=== PATIENT | male | born 1940 | race Caucasian/White ===

== ENCOUNTER 2020-10-03 01:35 | Inpatient (IN) | payer OTHER, SELFPAY ==
[2020-10-03] VITALS (7 sets, daily range): BP systolic 136–200; BP diastolic 70–82
[~2020-10-03] VITALS: Ht 175.3 cm; Wt 90.7 kg
[~2020-10-03 01:35] MED LIST: ACET-503 PO; BEN50 PO; CARV6.25 PO; GABA100C PO; LANTUS SC; ROC.25 PO
--- NOTE | 2020-10-03 01:36 | NUR ---
PT BIBA AND TRANSFERRED TO BED VIA DRAW SHEET. ERMD AND RT AT BEDSIDE.
--- NOTE | 2020-10-03 01:40 | NUR ---
80 YR OLD BIBA FROM HOME FOR CC OF DIFFICULTY BREATHING. PT IS AOX4. PER EMS, PT WAS 52% on ROOM AIR, WAS PLACED ON CPAP AT SATURATION AT 97%. PT HAS SIGNS OF WORK OF BREATHING. PT LUNG SOUND HAS WHEEZES UPON EXPIRATION. PT HAS SHUNT IN LEFT UPPER ARM. PT HAS DARK SKIN WITH SLIGHT EDEMA IN BILATERAL LOWER LEGS. PT RIGHT FOOT HAS WRAPPING PRIOR TO ARRIVAL. PT IS BAHRAINI SPEAKING. BED LOCKED IN LOWEST POSITION WITH 2 SIDE RAILS UP FOR SAFTEY. 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
[2020-10-03] MEDS ORDERED: NITROGLYCERIN 0.4 MG TAB SL ONE (01:45)
--- NOTE | 2020-10-03 01:50 | NUR ---
PT PLACED ON BIPAP 30/01 f 14 TOLERATED WELL AND WAS TITRATED TO 29/12 f14 28% FIO2. PT TOLERATING WELL RESP DISTRESS IS NO LONGER PRESENT. WILL CONTINUE TO TITRATE TOLERATED AND MONITOR PT. Addendum: 10/03/20 at 0351 by GEETA POST CHARTING
--- NOTE | 2020-10-03 01:52 | NUR ---
NOVEL AND INFLUENZA SWAB COLLECTED AND HANDED TO LAB.
--- NOTE | 2020-10-03 01:54 | NUR ---
THIRD SHIFT LIEUTENANT AT BEDSIDE. BLOOD SAMPLES AND CULTURES OBTAINED AND HANDED TO THIRD SHIFT LIEUTENANT.
--- NOTE | 2020-10-03 01:58 | NUR ---
granddaughter Abigail Page called to get update on pt - contact # [phone]. Per granddaughter he is suppose to have dialysis today
[2020-10-03 02:09] LABS: BASOPHILS # (AUTO) 0.1 K/uL (0.00-0.22); EOSINOPHILS # (AUTO) 0.1 K/uL (0-0.4); EOSINOPHILS % (AUTO) 1.6 % (0.0-4.0); HEMATOCRIT 33.1 % (36-52); HEMOGLOBIN 10.8 g/dL (12.0-18.0); LYMPHOCYTES # (AUTO) 0.8 K/uL (2.0-11.5); LYMPHOCYTES % (AUTO) 12.4 % (20.5-51.1); MEAN CORPUSCULAR HEMOGLOBIN 31 pg (27-31); MEAN CORPUSCULAR HGB CONC 33 g/dL (33-37); MEAN CORPUSCULAR VOLUME 93.8 fL (80-94); MONOCYTES # (AUTO) 0.3 K/uL (0.8-1.0); MONOCYTES % (AUTO) 5.2 % (1.7-9.3); NEUTROPHILS # (AUTO) 5.4 K/uL (1.8-7.7); NEUTROPHILS % (AUTO) 79.8 % (42.2-75.2); PLATELET COUNT (AUTO) 267 K/uL (140-450); RED BLOOD CELL COUNT(AUTO) 3.53 MIL/uL (4.20-6.10); RED CELL DISTRIBUTION WIDTH 16.2 % (11.6-13.7); WHITE BLOOD COUNT (AUTO) 6.7 K/uL (4.8-10.8)
--- NOTE | 2020-10-03 02:10 | NUR ---
# 15 FR Urinary catheter inserted utilizing sterile technique. Immediate return of 300 ml OF YELLOW urine noted. Urine sample collected and sent to lab. Pt tolerated procedure WELL.
[2020-10-03 02:24] LABS: C-REACTIVE PROTEIN QUANT 5.5 mg/dL (0.0-0.9)
[2020-10-03 02:26] LABS: PROTHROMBIN TIME 11.6 secs (10.8-13.4)
[2020-10-03 02:27] LABS: APPEARANCE,URINE CLEAR (CLEAR); BILIRUBIN,URINE NEGATIVE (NEGATIVE); BLOOD, URINE 3+ (NEGATIVE); COLOR,URINE YELLOW (YELLOW); LEUKOCYTE ESTERASE ,URINE NEGATIVE (NEGATIVE); NITRITE, URINE NEGATIVE (NEGATIVE); PH,URINE 8.5 (5.0-9.0); UGLUCOSE 1+ (NEGATIVE)
[2020-10-03 02:29] LABS: LACTATE DEHYDROGENASE 171 U/L (85-227)
--- NOTE | 2020-10-03 02:30 | NUR ---
RADIOLOGIST TECH AT BEDSIDE.
[2020-10-03 02:34] LABS: RBC,URINE TOO NUMEROUS TO COUN /HPF (0-5)
[2020-10-03 02:35] LABS: WBC,URINE 0-5 /HPF (0-5)
--- NOTE | 2020-10-03 02:36 | NUR ---
ADMINISTERED SECOND DOSE OF NITROGLYCERIN SUBLINGUAL.
--- NOTE | 2020-10-03 02:41 | NUR ---
ADMINISTERED THIRD DOSE OF NITROGLYCERIN SUBLINGUAL.
--- NOTE | 2020-10-03 02:41 | NUR ---
PT WAS FOUND AWAKE IN DEAN'S POSITION IN BED. PT STATES NO PAIN AND NO MEDICAL COMPLAINTS. PT HAS EQUAL RISE AND FALL UPON RESPIRATION. BED LOCKED IN LOWEST POSITION WITH 2 SIDE RAILS UP FOR SAFETY. WILL CONTINUE TO MONITOR.
--- NOTE | 2020-10-03 02:42 | NUR ---
RT AT BEDSIDE.
[2020-10-03 02:51] LABS: ALBUMIN 3.6 g/dL (3.4-5.0); ANION GAP 13.4 (8-16); ASPARTATE AMINOTRANSFERASE 15 U/L (15-37); CHLORIDE 102 mmol/L (98-107); GLUCOSE 166 mg/dL (74-106); POTASSIUM 5.4 mmol/L (3.5-5.1); SODIUM SERUM 143 mmol/L (136-145); TOTAL BILIRUBIN 0.6 mg/dL (0.0-1.0); UREA NITROGEN, BLOOD 46 mg/dL (7-18)
[2020-10-03] MEDS ORDERED: DEXAMETHASONE 10 MG/ML VIAL IVP ONE (03:10)
[2020-10-03] MEDS ORDERED: cefTRIAXone 1,000 MG VIAL ONE (03:16)
--- NOTE | 2020-10-03 03:21 | NUR ---
IV IN RIGHT HAND FOUND REMOVED. CATH INTACT. 4X4 GAUZE APPLIED TO RIGHT HAND.
--- NOTE | 2020-10-03 03:54 | NUR ---
SPOKED TO PT GRAND DAUGHTER "DAVINA PALMA" AND UPDATE ON PT STATUS. PER "DAVINA PALMA", PT HAS BLOOD CLOTS IN LOWER LEGS BILATERALLY FOR PAST 1 MONTH AND WAS NOT REMOVED AND PT HAS GANGRENE IN RIGHT FOOT PAST 5 YEARS. ERMD NOTIFIED AND AWARE. PER "DAVINA PALMA", [facility]" CAN BE CONTACTED AT [phone] FOR MORE DETAILED PT MEDICAL HISTORY.
[2020-10-03] MEDS ORDERED: VITA1TAB44 PO (04:16)
[2020-10-03] MEDS ORDERED: ATOR40TA PO (04:16)
[2020-10-03] MEDS ORDERED: CARV3.12 PO (04:16)
[2020-10-03] MEDS ORDERED: APIX2.5 PO (04:16)
[2020-10-03] MEDS ORDERED: SYN.075 PO (04:16)
[2020-10-03] MEDS ORDERED: LACT1CAP50 PO (04:16)
[2020-10-03] MEDS ORDERED: ASPI-1822 PO (04:16)
--- NOTE | 2020-10-03 04:18 | NUR ---
SATNIAGO SWAB COLLECTED AND WALKED TO LAB.
--- NOTE | 2020-10-03 04:20 | NUR ---
DRESSING TO RIGHT FOOT AND LEFT TOE REMOVED. WOUND ASSESSMENT AND PICTURES TAKEN OF RIGHT HEEL, RIGHT TOE, AND LEFT TOE. NEW GAUZE APPLIED TO RIGHT HEEL, RIGHT TOE, AND LEFT TOE. PT RIGHT FOOT WRAPPED WITH NEW ROLLER GAUZE.
--- NOTE | 2020-10-03 04:40 | NUR ---
PT WAS FOUND ASLEEP IN DEAN'S POSITION IN BED. PT HAS EQUAL RISE AND FALL UPON RESPIRATION. PT DOES NOT APPEAR TO BE UNDER DISTRESS. BED LOCKED IN LOWEST POSITION WITH 2 SIDE RAILS UP FOR SAFETY. WILL CONTINUE TO MONITOR.
--- NOTE | 2020-10-03 06:17 | NUR ---
Patient will be admitted to care of DR PIHLLIPS. Admited to TELEMETRY. Will go to room 124B. Belongings list completed. Report to LEORA ALFONSO.
--- NOTE | 2020-10-03 06:51 | NUR ---
PT TRANSFERRED TO TELEMETRY ROOM 124B. RECEIVING NURSE LEORA ALFONSO AT BEDSIDE.
--- NOTE | 2020-10-03 06:53 | NUR ---
TRANSFERRED PT TO MST UNIT FROM ER WITH ER NURSE (SASHA) AND RT. PT IS AWAKE AND ALERT, A&OX4. ON 2L O2 OXIMIZER WITH BREATHING UNLABORED. O2 SAT IS 100%. SKIN IS WARM AND DRY. MULTIPLE WOUNDS ON BILATERAL LOWER EXTREMITIES. PICTURES TAKEN BY THE ER NURSE. IV IS IN THE RIGHT AC 20 GAUGE SALINE LOCKED. BECKA COVID NEGATIVE, PCR PENDING. PLAN OF CARE DISCUSSED. PT IS STABLE AT THIS TIME.
--- NOTE | 2020-10-03 07:10 | NUR ---
REC'D PT FROM E.D. PT STABLE. A/Ox4, NO CHEST PAIN AT THIS TIME, LUNGS CLEAR ELHAM.LOBES/DIMINISHED, S1S2, [place]AM.LOWER EXTREMITY DISCOLORATION, DARK PIGMENTED. HAS DRESSING ON R. FOOT H/O GANGRENE, L.TOE WOUND. L. UPPER ARM HD ACCESS. R. AC 20G. PT STATES HAS DIFFICULTY TAKING IN DEEP BREATH, OXYGEN SATURATION 100%.
--- NOTE | 2020-10-03 07:20 | NUR ---
ENDORSED PT TO DAY SHIFT NURSE FOR CONTINUITY OF CARE. PT IS STABLE AT THIS TIME. PLAN OF CARE DISCUSSED.
--- NOTE | 2020-10-03 07:50 | NUR ---
CONTACTED YANY CORONA FOR CT ANGIO CONSENT, CONSENTED TO PROCEDURE.
[2020-10-03] MEDS ORDERED: ONDANSETRON 4 MG/2 ML VIAL IVP PRN (08:00)
[2020-10-03] MEDS ORDERED: ACETAMINOPHEN 325 MG TAB PO PRN (08:00)
[2020-10-03] MEDS ORDERED: ZOLPIDEM 5 MG TAB PO PRN (08:00)
[2020-10-03] MEDS ORDERED: DOCUSATE SODIUM 100 MG GELCAP PO PRN (08:00)
[2020-10-03 08:30] LABS: BASOPHILS % (AUTO) 0.4 % (0.0-2.0); EOSINOPHILS % (AUTO) 0.1 % (0.0-4.0); HEMATOCRIT 33.4 % (36-52); HEMOGLOBIN 10.9 g/dL (12.0-18.0); LYMPHOCYTES # (AUTO) 0.5 K/uL (2.0-11.5); LYMPHOCYTES % (AUTO) 7.4 % (20.5-51.1); MEAN CORPUSCULAR HEMOGLOBIN 31 pg (27-31); MEAN CORPUSCULAR HGB CONC 33 g/dL (33-37); MONOCYTES # (AUTO) 0.2 K/uL (0.8-1.0); MONOCYTES % (AUTO) 2.3 % (1.7-9.3); NEUTROPHILS # (AUTO) 5.9 K/uL (1.8-7.7); NEUTROPHILS % (AUTO) 89.8 % (42.2-75.2); PLATELET COUNT (AUTO) 255 K/uL (140-450); RED BLOOD CELL COUNT(AUTO) 3.56 MIL/uL (4.20-6.10); RED CELL DISTRIBUTION WIDTH 16.7 % (11.6-13.7); WHITE BLOOD COUNT (AUTO) 6.6 K/uL (4.8-10.8)
[2020-10-03 08:52] LABS: PROTHROMBIN TIME 11.7 secs (10.8-13.4)
[2020-10-03 08:54] LABS: ALBUMIN 3.4 g/dL (3.4-5.0); AMYLASE 57 U/L (25-115); ANION GAP 12.9 (8-16); ASPARTATE AMINOTRANSFERASE 12 U/L (15-37); CARBON DIOXIDE 31.1 mmol/L (21-32); CHLORIDE 102 mmol/L (98-107); CHOL/HDL RATIO 2.8 (1-4.5); GLUCOSE 199 mg/dL (74-106); HDL CHOLESTEROL 49 mg/dL (40-60); LDL (CALC) 77 mg/dL (60-100); LIPASE 127 U/L (73-393); MAGNESIUM 2.7 mg/dL (1.8-2.4); PHOSPHORUS 3.5 mg/dL (2.5-4.9); SODIUM SERUM 140 mmol/L (136-145); THYROID STIMULATING HORMONE 2.67 uIU/mL (0.34-3.74); TOTAL BILIRUBIN 0.6 mg/dL (0.0-1.0); TRIGLYCERIDES 63 mg/dL (30-150); UREA NITROGEN, BLOOD 49 mg/dL (7-18)
[2020-10-03 08:58] LABS: CREATININE 5.1 mg/dL (0.6-1.3)
--- NOTE | 2020-10-03 09:02 | NUR ---
PT [facility] PT WAS TRANSFERRED WITH A NASAL CANULA AT 6L/MIN SATURATING 100% DURING TRANSPORT TIME. PTS VITAL SIGNS WERE STABLE DURING TRANSPORT. PT THEN WAS PLACED ON 5L/MIN NC MAINTAINING 98% SATURATIONS. CARE WAS THEN TRANSFERRED TO THE MST TEAM.
[2020-10-03] MEDS: hydrALAZINE 20 MG/ML VIAL IVP SCH ×2 (09:53→13:04)
--- NOTE | 2020-10-03 09:56 | NUR ---
ADMINISTERED 5MG HYDRALAZINE PER MD ORDER FOR INCREASED B/P . FLUSHED BEFORE ADMINISTRATION AND AFTER WITH 10ML NS. PT TOLERATED PROCEDURE WELL.
[2020-10-03] MEDS: NACL 0.9% 1,000 ML IV SCH ×2 (10:00→18:00)
--- NOTE | 2020-10-03 10:06 | NUR ---
SOCIAL WORK NOTE: KAN WAS UNABLE TO MEET PATIENT AT BEDSIDE. KAN CONTACTED PATIENT'S , YANY CORONA [phone]. KAN LEFT VM WITH PATIENT'S . SW WILL FOLLOW UP TO COMPLETE ASSESSMENT. Addendum: 10/04/20 at 1426 by Teofilo PALMER KAN LEFT ADDITIONAL VM. Addendum: 10/05/20 at 1029 by Teofilo PALMER KAN LEFT ADDITIONAL VM WITH YANY LOUIS [phone]. KAN CONTACTED KADEN COLINDRES TO SEE IF ANY ADDITIONAL FAMILY HAS CALLED. PER RN, NO FAMILY HAS CALLED. KAN WILL FOLLOW UP.
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
[2020-10-03] MEDS ORDERED: SODIUM ZIRCONIUM CYCLOSILICATE 10 GM POWD.PACK PO SCH (15:00)
--- NOTE | 2020-10-03 15:38 | NUR ---
PATIENT HAS BEEN SCREENED AND CATEGORIZED MODERATE NUTRITION RISK. PATIENT WILL BE SEEN WITHIN 3-5 DAYS OF ADMISSION. 10/05/20 10/07/[address]
--- NOTE | 2020-10-03 16:04 | NUR ---
PT HAD BEGUN HEMODIALYSIS WHEN CT AVAILABLE FOR CT ANGIOGRAM, DR. PHILLIPS NOTIFIED, PER DR. PHILLIPS CHECK WITH NEPHROLOGY TO STOP HD AND PERFORM CT, PER DR. DISLA, HAVE PT DIALYSE FOR TWO HOURS, THEN HAVE CT ANGIOGRAM DONE, SHE WILL ORDER NEW HD FOR TOMORROW 10/04/2020. MESSAGE SENT TO DR. PHILLIPS TO INFORM.
[2020-10-03] MEDS: carvediloL 3.125 MG TAB PO SCH (17:00)
[2020-10-03] MEDS ORDERED: DEXTROSE 50% 50 ML SYR IVP PRN (17:05)
[2020-10-03] MEDS: INSULIN LISPRO SLIDING SCALE 100 UNITS/ML VIAL SUBQ PRN ×2 (17:18→21:08)
--- NOTE | 2020-10-03 17:30 | NUR ---
SPOKE TO CT SCAN, INFORMED PT WAS READY FOR ANGIOGRAM. PER LANGUAGES AND LITERATURE INSTRUCTOR, WILL COME ONCE URGENT SCANS HAVE BEEN PROCESSED FIRST.
--- NOTE | 2020-10-03 19:37 | NUR ---
ENDORSED TO NEUROCRITICAL CARE PHYSICIAN NURSE FOR CONTINUITY OF CARE, PT STABLE.
--- NOTE | 2020-10-03 19:38 | NUR ---
RECEIVED PATIENT FROM AM SHIFT NURSE FOR CONTINUITY OF CARE. AAOX4. RESPIRATIONS EVEN, UNLABORED. CONTINUES ON 3L VIA OXIMIZER, O2SAT 100%. NO S/S RESPIRATORY DISTRESS. SKIN WARM, DRY. SALINE LOCK TO RIGHT AC 20 PATENT/INTACT. LEFT ARM AV SHUNT NOTED. NO C/O PAIN. NO S/S ACUTE DISTRESS. ABDOMEN SOFT, NONTENDER. BOWEL SOUNDS ACTIVE X4 QUADRANTS. PATIENT IS ANURIC. PLAN OF CARE DISCUSSED. CALL LIGHT WITHIN REACH. SAFETY PRECAUTIONS IN PLACE. ISOLATION PRECAUTIONS OBSERVED.
--- NOTE | 2020-10-03 19:58 | NUR ---
PT UNAVAILABLE AT THIS TIME/PT NOT IN ROOM
[2020-10-03] MEDS: APIXABAN 2.5 MG TAB PO SCH (21:07)
[2020-10-03] MEDS: BLOOD GLUCOSE MONITORING 1 DEV DEV FS SCH (21:07)
[2020-10-03] MEDS: PIPERACILLIN/TAZOBACTAM 2.25 GM in DEXTROSE 5% 50 ML IV SCH (21:07)
[2020-10-03] MEDS: VIT-B COMP/VIT-C/FOLIC ACID 1 TAB PO SCH (21:07)
--- NOTE | 2020-10-03 21:30 | NUR ---
DUE MEDS GIVEN. PATIENT IS RESTING COMFORTABLY IN BED AT THIS TIME. NO S/S ACUTE DISTRESS. CALL LIGHT WITHIN REACH. SAFETY PRECAUTIONS IN PLACE.
--- NOTE | 2020-10-03 23:40 | NUR ---
PATIENT IS ASLEEP. NO S/S ACUTE DISTRESS. CALL LIGHT WITHIN REACH. SAFETY PRECAUTIONS IN PLACE.
[2020-10-04] VITALS: BP 142/71
--- NOTE | 2020-10-04 01:00 | NUR ---
MADE ROUNDS. PATIENT IS ASLEEP. NO S/S ACUTE DISTRESS. CALL LIGHT WITHIN REACH. SAFETY PRECAUTIONS IN PLACE.
--- NOTE | 2020-10-04 03:00 | NUR ---
PATIENT IS ASLEEP. NO S/S ACUTE DISTRESS. CALL LIGHT WITHIN REACH. SAFETY PRECAUTIONS IN PLACE.
[2020-10-04] MEDS: NACL 0.9% 1,000 ML IV SCH ×2 (03:27→14:14)
[2020-10-04 04:00] VITALS: BP 145/72
[2020-10-04] MEDS: PIPERACILLIN/TAZOBACTAM 2.25 GM in DEXTROSE 5% 50 ML IV SCH ×3 (05:07→21:49)
--- NOTE | 2020-10-04 05:11 | NUR ---
PATIENT IS RESTING COMFORTABLY IN BED. NO S/S ACUTE DISTRESS. CALL LIGHT WITHIN REACH. SAFETY PRECAUTIONS IN PLACE.
[2020-10-04] MEDS: LEVOTHYROXINE 0.075 MG TAB PO SCH (05:37)
[2020-10-04 06:03] LABS: BASOPHILS % (AUTO) 0.4 % (0.0-2.0); EOSINOPHILS % (AUTO) 0.3 % (0.0-4.0); HEMATOCRIT 29.1 % (36-52); HEMOGLOBIN 9.5 g/dL (12.0-18.0); LYMPHOCYTES # (AUTO) 0.7 K/uL (2.0-11.5); LYMPHOCYTES % (AUTO) 10.8 % (20.5-51.1); MEAN CORPUSCULAR HEMOGLOBIN 31 pg (27-31); MEAN CORPUSCULAR HGB CONC 33 g/dL (33-37); MEAN CORPUSCULAR VOLUME 93.9 fL (80-94); MONOCYTES # (AUTO) 0.6 K/uL (0.8-1.0); MONOCYTES % (AUTO) 8.9 % (1.7-9.3); NEUTROPHILS % (AUTO) 79.6 % (42.2-75.2); PLATELET COUNT (AUTO) 258 K/uL (140-450); RED CELL DISTRIBUTION WIDTH 16.9 % (11.6-13.7); WHITE BLOOD COUNT (AUTO) 6.3 K/uL (4.8-10.8)
[2020-10-04 06:27] LABS: MAGNESIUM 2.3 mg/dL (1.8-2.4); PHOSPHORUS 3.9 mg/dL (2.5-4.9)
[2020-10-04 06:28] LABS: ANION GAP 10.7 (8-16); CARBON DIOXIDE 31.8 mmol/L (21-32); CHLORIDE 103 mmol/L (98-107); GLUCOSE 79 mg/dL (74-106); POTASSIUM 4.5 mmol/L (3.5-5.1); SODIUM SERUM 141 mmol/L (136-145); UREA NITROGEN, BLOOD 41 mg/dL (7-18)
[2020-10-04 06:51] LABS: CREATININE 4.3 mg/dL (0.6-1.3)
[2020-10-04] MEDS: BLOOD GLUCOSE MONITORING 1 DEV DEV FS SCH ×4 (07:01→21:49)
--- NOTE | 2020-10-04 07:33 | NUR ---
ENDORSED PATIENT TO AM SHIFT NURSE FOR CONTINUITY OF CARE.
--- NOTE | 2020-10-04 07:35 | NUR ---
RECEIVED BEDSIDE ENDORSEMENT FROM NIGHTSDEFT NURSE FOR CONTINUITY OF CARE.
[2020-10-04 08:00] VITALS: BP 169/63
[2020-10-04] MEDS: carvediloL 3.125 MG TAB PO SCH ×2 (08:00→17:42)
--- NOTE | 2020-10-04 08:43 | NUR ---
AM MEDS HELD FOR DIALYSIS
[2020-10-04] MEDS: ASPIRIN 81 MG TAB.CHEW PO SCH (08:45)
[2020-10-04] MEDS: APIXABAN 2.5 MG TAB PO SCH ×2 (08:45→21:53)
[2020-10-04] MEDS: ATORVASTATIN 20 MG TAB PO SCH (08:45)
[2020-10-04] MEDS: VIT-B COMP/VIT-C/FOLIC ACID 1 TAB PO SCH ×2 (08:46→21:49)
[2020-10-04] MEDS: INSULIN LISPRO SLIDING SCALE 100 UNITS/ML VIAL SUBQ PRN (11:52)
--- NOTE | 2020-10-04 11:58 | NUR ---
ADMINISTERED PRN INSULIN FOR BG 152. PATIENT CURRENTLY UNDERGOING DIALYSIS. DIALYSIS NURSE AT BEDSIDE. PATIENT WATCHING TV, ALERT AND ORIENTED. NO SIGNS OF DISTRESS. SAFETY MEASURES IN PLACE. WILL CONTINUE TO MONITOR.
[2020-10-04 12:00] VITALS: BP 109/50
--- NOTE | 2020-10-04 14:10 | NUR ---
ADMINISTERED PRESCRIBED MED PER MD ORDER. PATIENT TOLERATED WELL. MEDICATION EDUCATION PROVIDED. PATIENT VERBALIZED UNDERSTANDING. SAFETY MEASURES IN PLACE. WILL CONT TO MONITOR.
[2020-10-04 16:00] VITALS: BP 111/54
--- NOTE | 2020-10-04 17:28 | NUR ---
PATIENT BG 127, NO INSULIN COVERAGE NEEDED.
--- NOTE | 2020-10-04 19:00 | NUR ---
PATIENT RECEIVED IN BED, ALERT AND ORIENTED X 4. DISCUSSED WITH PATIENT RN PLAN OF CARE, MEDICATION REGIMEN, FALL AND SAFETY PRECAUTIONS AND MEDICAL PLAN OF CARE. IV TO RIGHT AC INTACT AND IN PLACE. NO SIGNS OF INFILTRATION NOTED. LEFT UPPER ARM DIALYSIS SHUNT INTACT. 2L OXYMIZER IN PLACE. NO COMPLAINT OF SOB NOTED. RESPIRATIONS EVEN AND NONLABORED. BILATERAL LOWER EXTREMITIES DISCOLORATION NOTED WITH SCABS. GANGRENE NOTED TO RIGHT FOOT. NO COMPLAINT OF PAIN OFFERED. FALL AND SAFETY PRECAUTIONARY MEASURES ONGOING. NO ACUTE DISTRESS NOTED.
--- NOTE | 2020-10-04 19:34 | NUR ---
ENDORSED PATIENT TO NIGHTSHIFT NURSE FOR CONTINUITY OF CARE.
[2020-10-04 20:00] VITALS: BP 109/50
[2020-10-05] VITALS: BP 104/58
[2020-10-05] MEDS: NACL 0.9% 1,000 ML IV SCH ×3 (00:05→22:50)
[2020-10-05 04:00] VITALS: BP 110/62
[2020-10-05] MEDS: PIPERACILLIN/TAZOBACTAM 2.25 GM in DEXTROSE 5% 50 ML IV SCH ×3 (05:00→22:46)
[2020-10-05 06:23] LABS: ANION GAP 12.2 (8-16); CARBON DIOXIDE 26.9 mmol/L (21-32); CHLORIDE 104 mmol/L (98-107); CREATININE 3.7 mg/dL (0.6-1.3); GLUCOSE 146 mg/dL (74-106); POTASSIUM 4.1 mmol/L (3.5-5.1); SODIUM SERUM 139 mmol/L (136-145); UREA NITROGEN, BLOOD 29 mg/dL (7-18)
[2020-10-05 06:50] LABS: BASOPHILS % (AUTO) 0.3 % (0.0-2.0); EOSINOPHILS # (AUTO) 0.1 K/uL (0-0.4); HEMATOCRIT 29.8 % (36-52); HEMOGLOBIN 9.7 g/dL (12.0-18.0); LYMPHOCYTES # (AUTO) 0.8 K/uL (2.0-11.5); LYMPHOCYTES % (AUTO) 18.8 % (20.5-51.1); MEAN CORPUSCULAR HEMOGLOBIN 31 pg (27-31); MEAN CORPUSCULAR HGB CONC 33 g/dL (33-37); MEAN CORPUSCULAR VOLUME 94.1 fL (80-94); MONOCYTES # (AUTO) 0.5 K/uL (0.8-1.0); MONOCYTES % (AUTO) 11.3 % (1.7-9.3); NEUTROPHILS # (AUTO) 2.9 K/uL (1.8-7.7); NEUTROPHILS % (AUTO) 67.6 % (42.2-75.2); PLATELET COUNT (AUTO) 254 K/uL (140-450); RED BLOOD CELL COUNT(AUTO) 3.17 MIL/uL (4.20-6.10); RED CELL DISTRIBUTION WIDTH 16.5 % (11.6-13.7); WHITE BLOOD COUNT (AUTO) 4.3 K/uL (4.8-10.8)
[2020-10-05] MEDS: BLOOD GLUCOSE MONITORING 1 DEV DEV FS SCH ×4 (07:30→21:00)
[2020-10-05 08:00] VITALS: BP 137/41
--- NOTE | 2020-10-05 08:05 | NUR ---
PATIENT IS AOX2-3, A FIB RATE CONTROLLED, RESPIRATIONS EVEN AND UNLABORED ON 2L OXYMIZER. HD YESTERDAY VIA [facility] AV SHUNT CLEAN DRY INTACT. BILATERAL DISCOLORATION NOTED TO LOWER EXTREMITIES. RIGHT FOOT WOUND IS CLEAN DRY INTACT, WOUND CARE DONE BY WOUND RN. PATIENT DENIES PAIN. UPDATED PATIENT ON PLAN OF CARE. WILL CONTINUE TO MONITOR.
[2020-10-05] MEDS: ATORVASTATIN 20 MG TAB PO SCH (08:31)
[2020-10-05] MEDS: VIT-B COMP/VIT-C/FOLIC ACID 1 TAB PO SCH ×2 (08:31→22:47)
[2020-10-05] MEDS: ASPIRIN 81 MG TAB.CHEW PO SCH (08:32)
[2020-10-05] MEDS: carvediloL 3.125 MG TAB PO SCH ×2 (08:32→17:58)
[2020-10-05] MEDS: LEVOTHYROXINE 0.075 MG TAB PO SCH (08:32)
[2020-10-05] MEDS: APIXABAN 2.5 MG TAB PO SCH ×2 (08:34→22:47)
[2020-10-05] MEDS ORDERED: NICOTINE TRANSD SYS 14 MG/24 HR PATCH TD SCH (09:00)
--- NOTE | 2020-10-05 09:59 | NUR ---
WOUND CONSULT DONE, PT. ALSO SEEN BY DR. EDMONDS BALANCE WHEEL SCREW HOLE TAPPER, POC DISCUSSED WITH DR. PHILLIPS, PENDING BONE SCANNED R/O OSTEOMYELITIS. BROWN DRY SCABS TO RIGHT ACHILLES 3X5CM, RIGHT HALLUX 2X1CM AND LEFT HALLUX 1X1CM, NO OPEN ACTIVE WOUND -APPLY SOAKED BETADINE 4X4 TO RIGHT ACHILLES, RIGHT AND LEFT HALLUX SCABS COVER WITH DRY DRESSING QD AND PRN. -APPLY HYDROGUARD TO BLE XEROSIS SKIN BID AND CARLITO -TURN AND REPOSITION PATIENT Q 2H -ASSESS AND MONITOR SKIN CONDITION DURING POSITION CHANGE -OFFLOAD BILATERAL HEELS BY PLACING PILLOWS UNDER CALVES AT ALL TIMES, UNLESS OTHERWISE CONTRAINDICATED -PRESSURE REDISTRIBUTION BY PLACING PILLOWS AND OFFLOADING SACRALCOCCYX -KEEP SKIN CLEAN AND DRY AT ALL TIMES.
[2020-10-05 12:00] VITALS: BP 144/39
[2020-10-05] MEDS: GAUZE TP SCH (12:10)
[2020-10-05] MEDS: HYDRAGUARD CREAM TP SCH (12:11)
[2020-10-05] MEDS: INSULIN LISPRO SLIDING SCALE 100 UNITS/ML VIAL SUBQ PRN ×3 (12:22→22:45)
--- NOTE | 2020-10-05 14:00 | NUR ---
PATIENT REPORTS FEELING CONSTIPATED. HAS NOT HAD A BM SINCE HOSPITAL ADMISSION. NOTIFIED DR. PHILLIPS.
[2020-10-05 15:19] LABS: MAGNESIUM 2.4 mg/dL (1.8-2.4); PHOSPHORUS 4.4 mg/dL (2.5-4.9)
[2020-10-05 16:00] VITALS: BP 161/47
--- NOTE | 2020-10-05 16:30 | NUR ---
PATIENT HAD A MODERATE SOFT BM. STILL FEELS CONSTIPATED, GAVE MIRALAX PO, HELD DULCOLAX ME.
[2020-10-05] MEDS ORDERED: POLYETHYLENE GLYCOL 17 GM/PKT PO SCH (17:00)
[2020-10-05] MEDS ORDERED: bisacodyL 10 MG SUPP RC SCH (17:00)
--- NOTE | 2020-10-05 18:35 | NUR ---
PATIENT REMAINS IN AFIB RATE CONTROLLED. TOLERATED ALL MEALS WELL WITH NO N/V. IV FLUIDS INFUSING. SCHEDULED FOR HD TONIGHT, ORDER AND LABS GIVEN TO CENTRAL OFFICE REPAIRER SUPERVISOR. NO COMPLAINTS OF PAIN. SKIN KEPT CLEAN DRY INTACT. WILL ENDORSE TO NIGHT RN. Addendum: 10/05/20 at 1859 by Agency 08 RN RN ON 2L NASAL CANNULA 97%
--- NOTE | 2020-10-05 18:58 | NUR ---
NOTIFIED DR PHILLIPS REGARDING IV FLUIDS. ORDERS RECEIVED TO DECREASE TO 20 CC/HOUR.
[2020-10-05 20:30] VITALS: BP 134/59
[2020-10-06] VITALS: BP 108/60
[2020-10-06] MEDS: HYDRAGUARD CREAM TP SCH ×2 (01:00→13:37)
[2020-10-06] MEDS: PIPERACILLIN/TAZOBACTAM 2.25 GM in DEXTROSE 5% 50 ML IV SCH ×3 (04:38→20:43)
[2020-10-06 04:48] VITALS: BP 120/54
[2020-10-06] MEDS: BLOOD GLUCOSE MONITORING 1 DEV DEV FS SCH ×4 (05:09→20:40)
[2020-10-06] MEDS: LEVOTHYROXINE 0.075 MG TAB PO SCH (05:09)
[2020-10-06] MEDS: HYDROcodone/APAP 5/325 MG 1 TAB TAB PO PRN ×2 (05:21→20:41)
[2020-10-06 06:21] LABS: ANION GAP 13.3 (8-16); CARBON DIOXIDE 26.2 mmol/L (21-32); CHLORIDE 102 mmol/L (98-107); GLUCOSE 83 mg/dL (74-106); MAGNESIUM 2.3 mg/dL (1.8-2.4); PHOSPHORUS 4.8 mg/dL (2.5-4.9); POTASSIUM 4.5 mmol/L (3.5-5.1); SODIUM SERUM 137 mmol/L (136-145); UREA NITROGEN, BLOOD 43 mg/dL (7-18)
[2020-10-06 06:29] LABS: CREATININE 4.7 mg/dL (0.6-1.3)
[2020-10-06 06:42] LABS: BASOPHILS % (AUTO) 1.1 % (0.0-2.0); EOSINOPHILS # (AUTO) 0.1 K/uL (0-0.4); EOSINOPHILS % (AUTO) 3.2 % (0.0-4.0); HEMATOCRIT 29.4 % (36-52); HEMOGLOBIN 9.7 g/dL (12.0-18.0); LYMPHOCYTES # (AUTO) 0.8 K/uL (2.0-11.5); LYMPHOCYTES % (AUTO) 20.7 % (20.5-51.1); MEAN CORPUSCULAR HEMOGLOBIN 31 pg (27-31); MEAN CORPUSCULAR HGB CONC 33 g/dL (33-37); MEAN CORPUSCULAR VOLUME 93.4 fL (80-94); MONOCYTES # (AUTO) 0.4 K/uL (0.8-1.0); MONOCYTES % (AUTO) 11.4 % (1.7-9.3); NEUTROPHILS # (AUTO) 2.5 K/uL (1.8-7.7); NEUTROPHILS % (AUTO) 63.6 % (42.2-75.2); PLATELET COUNT (AUTO) 259 K/uL (140-450); RED BLOOD CELL COUNT(AUTO) 3.15 MIL/uL (4.20-6.10); RED CELL DISTRIBUTION WIDTH 16.1 % (11.6-13.7); WHITE BLOOD COUNT (AUTO) 3.9 K/uL (4.8-10.8)
--- NOTE | 2020-10-06 06:43 | NUR ---
NOTIFIED DR. RICK ON-CALL FOR ABOUT ELEVATED BUN-43, CR-4.7 THIS AM S/P DIALYSIS LAST NIGHT. NO NEW ORDERS OBTAINED.
--- NOTE | 2020-10-06 07:10 | NUR ---
RECEIVED PATIENT FROM SMOKEHOUSE OPERATOR RN. AAOX4. RESPIRATIONS UNLABORED. ON 2L O2 VIA N/C. NO S/S RESPIRATORY DISTRESS. SKIN WARM, DRY. SALINE LOCK TO RIGHT AC 20 PATENT/INTACT. LEFT ARM AV INTACT. NO C/O PAIN. . PATIENT IS ANURIC. ELEVATED BUN/CREA NOTIFIED TO MD. NO NEW ORDERS MADE. ISOLATION PRECAUTIONS OBSERVED. WOUND DRESSINGS INTACT, BILATERAL HEEL IN PLACE. CALL LIGHT WITHIN REACH.
[2020-10-06 08:00] VITALS: BP 129/37
[2020-10-06] MEDS: carvediloL 3.125 MG TAB PO SCH ×2 (08:34→19:00)
[2020-10-06] MEDS: ATORVASTATIN 20 MG TAB PO SCH (08:34)
[2020-10-06] MEDS: ASPIRIN 81 MG TAB.CHEW PO SCH (08:36)
[2020-10-06] MEDS: APIXABAN 2.5 MG TAB PO SCH ×2 (08:37→20:42)
[2020-10-06] MEDS: VIT-B COMP/VIT-C/FOLIC ACID 1 TAB PO SCH ×2 (08:41→20:39)
[2020-10-06 12:00] VITALS: BP 141/31
--- NOTE | 2020-10-06 12:00 | NUR ---
PT IS RESTING AND CALM. DENIES DISCOMFORT. WILL CONTINUE TO MONITOR.
--- NOTE | 2020-10-06 13:30 | NUR ---
SEEN AND EXAMINED BY DR. EDMONDS. RIGHT FOOT WOUNDS ASSESSED. REAPPLIED DRESSING AND BANDAGE. NO PLANS FOR SURGERY AT THIS TIME.
[2020-10-06] MEDS: GAUZE TP SCH (13:36)
--- NOTE | 2020-10-06 15:00 | NUR ---
SPOKE TO HD NURSE ORTIZ. HD RN IS AWARE OF THE HD ORDER . WILL FF-UP.
[2020-10-06 16:00] VITALS: BP 149/42
--- NOTE | 2020-10-06 19:20 | NUR ---
ENDORSED TO FEDERAL MEDIATOR RN. POC DISCUSSED AND REVIEWED. NO CHANGE OF CONDITION.
[2020-10-06 20:00] VITALS: BP 134/59
[2020-10-07] VITALS (7 sets, daily range): BP systolic 97–170; BP diastolic 52–74
[2020-10-07] MEDS: HYDRAGUARD CREAM TP SCH ×3 (05:15→22:07)
[2020-10-07] MEDS: NACL 0.9% 1,000 ML IV SCH (05:16)
[2020-10-07] MEDS: PIPERACILLIN/TAZOBACTAM 2.25 GM in DEXTROSE 5% 50 ML IV SCH ×3 (05:16→21:56)
[2020-10-07] MEDS: LEVOTHYROXINE 0.075 MG TAB PO SCH (05:17)
[2020-10-07] MEDS: HYDROcodone/APAP 5/325 MG 1 TAB TAB PO PRN (05:17)
[2020-10-07] MEDS: BLOOD GLUCOSE MONITORING 1 DEV DEV FS SCH ×4 (06:11→21:00)
[2020-10-07] MEDS: INSULIN LISPRO SLIDING SCALE 100 UNITS/ML VIAL SUBQ PRN ×2 (06:11→12:10)
[2020-10-07 06:13] LABS: BASOPHILS # (AUTO) 0.1 K/uL (0.00-0.22); BASOPHILS % (AUTO) 2.6 % (0.0-2.0); EOSINOPHILS # (AUTO) 0.1 K/uL (0-0.4); HEMATOCRIT 32.3 % (36-52); HEMOGLOBIN 10.5 g/dL (12.0-18.0); LYMPHOCYTES # (AUTO) 0.7 K/uL (2.0-11.5); MEAN CORPUSCULAR HEMOGLOBIN 31 pg (27-31); MEAN CORPUSCULAR HGB CONC 32 g/dL (33-37); MEAN CORPUSCULAR VOLUME 94.3 fL (80-94); MONOCYTES # (AUTO) 0.5 K/uL (0.8-1.0); MONOCYTES % (AUTO) 11.4 % (1.7-9.3); NEUTROPHILS # (AUTO) 2.8 K/uL (1.8-7.7); PLATELET COUNT (AUTO) 256 K/uL (140-450); RED BLOOD CELL COUNT(AUTO) 3.43 MIL/uL (4.20-6.10); RED CELL DISTRIBUTION WIDTH 16.5 % (11.6-13.7); WHITE BLOOD COUNT (AUTO) 4.2 K/uL (4.8-10.8)
[2020-10-07 06:23] LABS: ANION GAP 16.4 (8-16); CARBON DIOXIDE 23.6 mmol/L (21-32); CHLORIDE 100 mmol/L (98-107); GLUCOSE 150 mg/dL (74-106); SODIUM SERUM 135 mmol/L (136-145); UREA NITROGEN, BLOOD 48 mg/dL (7-18)
--- NOTE | 2020-10-07 07:15 | NUR ---
RECEIVED BEDSIDE REPORT FROM THERMODYNAMICS PROFESSOR NURSE MISSAEL RN, PT RESTING, NO DISTRESS NOTED, IV TO RAC 20G PATENT INTACT INFUSING NS @ 20ML/HR, INFUSING WELL, PT ON ROOM AIR, NO SOB NOTED. AV SHUNT TO L ARM. PT SCHEDULED O HAVE DIALYSIS TODAY. NO C/O PAIN AT THIS MOMENT, INITIAL ASSESSMENT DONE, ALL SAFETY PRECAUTION MET, CALL LIGHT WITHIN REACH, WILL CONTINUE TO MONITOR. Addendum: 10/07/20 at 0916 by Nitza Gunderson RN PT ON 2LPM O2 VIA NC, NOT ROOM AIR.
[2020-10-07] MEDS: carvediloL 3.125 MG TAB PO SCH ×2 (08:00→17:29)
--- NOTE | 2020-10-07 08:00 | NUR ---
COREG NOT ADMINISTERED DUE TO PT BP 108/53, AND PT IS SCHEDULED FOR DIALYSIS TODAY. WILL CONTINUE TO MONITOR.
[2020-10-07 08:16] LABS: CREATININE 5.9 mg/dL (0.6-1.3)
[2020-10-07] MEDS: ASPIRIN 81 MG TAB.CHEW PO SCH (09:02)
[2020-10-07] MEDS: VIT-B COMP/VIT-C/FOLIC ACID 1 TAB PO SCH ×2 (09:03→21:55)
[2020-10-07] MEDS: APIXABAN 2.5 MG TAB PO SCH ×2 (09:04→21:55)
[2020-10-07] MEDS: ATORVASTATIN 20 MG TAB PO SCH (09:04)
--- NOTE | 2020-10-07 12:00 | NUR ---
PT BP 170/52, NO C/O HEADACHE OR DISCOMFORT. PT IS GOING TO HAVE DIALYSIS, IN 1 HRS. BP MEDICATIONS ARE HELD AT THIS TIME.
[2020-10-07] MEDS: GAUZE TP SCH (13:00)
--- NOTE | 2020-10-07 13:00 | NUR ---
DIALYSIS STARTED, DIALYSIS NURSE AT BEDSIDE, WILL CONTINUE TO MONITOR.
--- NOTE | 2020-10-07 13:58 | NUR ---
PT ON ONGOING DIALYSIS, UNABLE TO GIVE ZOSYN DOSE FOR 1300, SPOKE TO PHARMACY, WILL ENDORSED METAL SPONGE MAKING MACHINE OPERATOR TO GIVE NEXT DOSE @2100.
--- NOTE | 2020-10-07 16:22 | NUR ---
10/07/20 RD INITIAL ASSESSMENT COMPLETED PLEASE REFER TO NUTRITION ASSESSMENT UNDER CARE ACTIVITY FOR ESTIMATED NUTRITIONAL NEEDS. 1. CONTINUE RENAL CCHO PUREE DIET TOLERATED 2. RECOMMEND SWALLOW EVALUATION 3. RD PROVIDED NUTRITION EDUCATION FOR RENAL DIET LOW IN POTASSIUM, SALT AND PHOSPHORUS. PT ACCEPTED. HANDOUT IN [place] LEFT FOR FAMILY 4. RD TO FOLLOW-UP 3-5 DAYS, MODERATE RISK [place], RD
--- NOTE | 2020-10-07 19:20 | NUR ---
ENDORSED PT TO RECRUITING INTERNSHIP RN FOR CONTINUOUS OF CARE.
[2020-10-07] MEDS: MORPHINE SULFATE 2 MG/ML SYR IVP PRN (22:00)
[2020-10-08] VITALS (7 sets, daily range): BP systolic 104–131; BP diastolic 40–62
[2020-10-08] MEDS: NACL 0.9% 1,000 ML IV SCH (00:08)
[2020-10-08] MEDS: PIPERACILLIN/TAZOBACTAM 2.25 GM in DEXTROSE 5% 50 ML IV SCH ×3 (05:21→21:00)
[2020-10-08] MEDS: LEVOTHYROXINE 0.075 MG TAB PO SCH (05:30)
[2020-10-08 06:24] LABS: CARBON DIOXIDE 28.4 mmol/L (21-32); CHLORIDE 101 mmol/L (98-107); GLUCOSE 131 mg/dL (74-106); POTASSIUM 4.4 mmol/L (3.5-5.1); SODIUM SERUM 138 mmol/L (136-145); UREA NITROGEN, BLOOD 28 mg/dL (7-18)
[2020-10-08 06:25] LABS: BASOPHILS # (AUTO) 0.1 K/uL (0.00-0.22); BASOPHILS % (AUTO) 1.6 % (0.0-2.0); EOSINOPHILS # (AUTO) 0.1 K/uL (0-0.4); EOSINOPHILS % (AUTO) 2.9 % (0.0-4.0); HEMATOCRIT 29.6 % (36-52); HEMOGLOBIN 9.8 g/dL (12.0-18.0); LYMPHOCYTES # (AUTO) 0.6 K/uL (2.0-11.5); LYMPHOCYTES % (AUTO) 14.8 % (20.5-51.1); MEAN CORPUSCULAR HEMOGLOBIN 31 pg (27-31); MEAN CORPUSCULAR HGB CONC 33 g/dL (33-37); MEAN CORPUSCULAR VOLUME 93.7 fL (80-94); MONOCYTES # (AUTO) 0.5 K/uL (0.8-1.0); MONOCYTES % (AUTO) 12.5 % (1.7-9.3); NEUTROPHILS # (AUTO) 2.8 K/uL (1.8-7.7); NEUTROPHILS % (AUTO) 68.2 % (42.2-75.2); PLATELET COUNT (AUTO) 235 K/uL (140-450); RED BLOOD CELL COUNT(AUTO) 3.16 MIL/uL (4.20-6.10); RED CELL DISTRIBUTION WIDTH 16.3 % (11.6-13.7); WHITE BLOOD COUNT (AUTO) 4.1 K/uL (4.8-10.8)
[2020-10-08 06:36] LABS: CREATININE 4.6 mg/dL (0.6-1.3)
[2020-10-08] MEDS: BLOOD GLUCOSE MONITORING 1 DEV DEV FS SCH ×4 (07:30→21:00)
--- NOTE | 2020-10-08 07:40 | NUR ---
RECEIVED REPORT FROM SALES AMBASSADOR NURSE FOR CONTINUITY OF CARE. PATIENT IN STABLE CONDITION.
[2020-10-08] MEDS: APIXABAN 2.5 MG TAB PO SCH ×2 (09:37→21:00)
[2020-10-08] MEDS: ASPIRIN 81 MG TAB.CHEW PO SCH (09:39)
[2020-10-08] MEDS: ATORVASTATIN 20 MG TAB PO SCH (09:39)
[2020-10-08] MEDS: VIT-B COMP/VIT-C/FOLIC ACID 1 TAB PO SCH ×2 (09:40→21:00)
[2020-10-08] MEDS: carvediloL 3.125 MG TAB PO SCH ×2 (09:47→18:01)
--- NOTE | 2020-10-08 09:53 | NUR ---
SCHEDULED MEDICATIONS DUE GIVEN. WILL CONTINUE TO MONITOR.
[2020-10-08] MEDS: GAUZE TP SCH (12:59)
[2020-10-08] MEDS: HYDRAGUARD CREAM TP SCH (12:59)
--- NOTE | 2020-10-08 13:25 | NUR ---
SCHEDULED MEDICATIONS DUE GIVEN. WILL CONTINUE TO MONITOR.
--- NOTE | 2020-10-08 18:01 | NUR ---
SCHEDULED MEDICATIONS DUE GIVEN. WILL CONTINUE TO MONITOR.
--- NOTE | 2020-10-08 19:44 | NUR ---
GAVE REPORT TO ALTERATIONS SEWER NURSE FOR CONTINUITY OF CARE. PATIENT IN STABLE CONDITION.
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
--- NOTE | 2020-10-08 21:00 | NUR ---
PATIENT REFUSED ALL 2100 MEDICATIONS (ZOSYN IV, ELIQUIS AND NEPHRO-JENELLE) AND BLOOD SUGAR CHECK. CHARGE NURSE NOTIFIED. PATIENT STATED HE WANTS TO GO HOME AND DOESN'T WANT TO TAKE ANYMORE MEDS. DESPITE HIGH TEACHING AND EDUCATION REGARDING MEDICATION REGIMEN, PATIENT STATED "THE MEDICINE IS MAKING ME MORE SICK".
[2020-10-08] MEDS: LORazepam 2 MG/ML VIAL IM/IVP PRN (22:09)
[2020-10-08 23:24] LABS: CARBON DIOXIDE 28.5 mmol/L (21-32); CHLORIDE 99 mmol/L (98-107); GLUCOSE 166 mg/dL (74-106); POTASSIUM 4.5 mmol/L (3.5-5.1); SODIUM SERUM 136 mmol/L (136-145); UREA NITROGEN, BLOOD 36 mg/dL (7-18)
[2020-10-08 23:31] LABS: CREATININE 5.5 mg/dL (0.6-1.3)
[2020-10-09] MEDS: LORazepam 2 MG/ML VIAL IM/IVP PRN (01:22)
[2020-10-09 04:00] VITALS: BP 148/91
[2020-10-09] MEDS: LEVOTHYROXINE 0.075 MG TAB PO SCH (05:52)
[2020-10-09] MEDS: MORPHINE SULFATE 2 MG/ML SYR IVP PRN (05:53)
[2020-10-09] MEDS: PIPERACILLIN/TAZOBACTAM 2.25 GM in DEXTROSE 5% 50 ML IV SCH ×3 (05:58→21:59)
[2020-10-09] MEDS: HYDRAGUARD CREAM TP SCH ×2 (06:00→12:03)
[2020-10-09] MEDS: NACL 0.9% 1,000 ML IV SCH (06:01)
--- NOTE | 2020-10-09 07:20 | NUR ---
RECEIVED PATIENT REPORT FROM NIGHT NURSE, PT IS STABLE. CALL LIGHT IS WITHIN REACH. SAFETY MEASURES IN PLACE. WILL CONTINUE TO MONITOR
[2020-10-09] MEDS: BLOOD GLUCOSE MONITORING 1 DEV DEV FS SCH ×4 (07:30→21:00)
[2020-10-09 07:51] LABS: BASOPHILS # (AUTO) 0.1 K/uL (0.00-0.22); BASOPHILS % (AUTO) 2.3 % (0.0-2.0); EOSINOPHILS # (AUTO) 0.1 K/uL (0-0.4); EOSINOPHILS % (AUTO) 1.2 % (0.0-4.0); HEMATOCRIT 32.5 % (36-52); HEMOGLOBIN 10.6 g/dL (12.0-18.0); LYMPHOCYTES # (AUTO) 0.9 K/uL (2.0-11.5); LYMPHOCYTES % (AUTO) 16.5 % (20.5-51.1); MEAN CORPUSCULAR HEMOGLOBIN 31 pg (27-31); MEAN CORPUSCULAR HGB CONC 33 g/dL (33-37); MEAN CORPUSCULAR VOLUME 94.7 fL (80-94); MONOCYTES # (AUTO) 0.7 K/uL (0.8-1.0); MONOCYTES % (AUTO) 12.7 % (1.7-9.3); NEUTROPHILS # (AUTO) 3.5 K/uL (1.8-7.7); NEUTROPHILS % (AUTO) 67.3 % (42.2-75.2); PLATELET COUNT (AUTO) 223 K/uL (140-450); RED BLOOD CELL COUNT(AUTO) 3.43 MIL/uL (4.20-6.10); RED CELL DISTRIBUTION WIDTH 16.6 % (11.6-13.7); WHITE BLOOD COUNT (AUTO) 5.2 K/uL (4.8-10.8)
[2020-10-09 08:00] VITALS: BP 139/58
[2020-10-09 08:00] LABS: ANION GAP 15.4 (8-16); CARBON DIOXIDE 24.4 mmol/L (21-32); CHLORIDE 99 mmol/L (98-107); GLUCOSE 161 mg/dL (74-106); POTASSIUM 4.8 mmol/L (3.5-5.1); SODIUM SERUM 134 mmol/L (136-145); UREA NITROGEN, BLOOD 35 mg/dL (7-18)
[2020-10-09 08:10] LABS: CREATININE 5.7 mg/dL (0.6-1.3)
[2020-10-09] MEDS: carvediloL 3.125 MG TAB PO SCH ×2 (08:48→17:55)
[2020-10-09] MEDS: ASPIRIN 81 MG TAB.CHEW PO SCH (08:48)
[2020-10-09] MEDS: VIT-B COMP/VIT-C/FOLIC ACID 1 TAB PO SCH ×2 (08:49→21:59)
[2020-10-09] MEDS: APIXABAN 2.5 MG TAB PO SCH ×2 (08:50→21:57)
[2020-10-09] MEDS: ATORVASTATIN 20 MG TAB PO SCH (08:52)
--- NOTE | 2020-10-09 09:10 | NUR ---
MEDICATIONS GIVEN ORDERED. PT TOLERATED WELL. CALL LIGHT IS WITHIN REACH. SAFETY MEASURES IN PLACE.
--- NOTE | 2020-10-09 11:30 | NUR ---
PT ASLEEP IN BED, EASY TO AROUSE. BLOOD GLUCOSE ASSESSED PER MD ORDER. NO S/S OF DISTRESS WILL CONTINUE TO MONITOR.
[2020-10-09 12:00] VITALS: BP 118/62
[2020-10-09] MEDS: GAUZE TP SCH (12:02)
[2020-10-09] MEDS: INSULIN LISPRO SLIDING SCALE 100 UNITS/ML VIAL SUBQ PRN (12:05)
--- NOTE | 2020-10-09 12:09 | NUR ---
MEDICATIONS GIVEN ORDERED. PT TOLERATED WELL. CALL LIGHT IS WITHIN REACH. SAFETY MEASURES IN PLACE. WILL CONTINUE TO MONITOR
--- NOTE | 2020-10-09 15:30 | NUR ---
PT IS RESTING IN BED. NO S/S OF DISTRESS. ALL SAFETY MEASURES IN PLACE WILL CONTINUE TO MONITOR.
[2020-10-09 16:00] VITALS: BP 128/47
--- NOTE | 2020-10-09 19:15 | NUR ---
PT ENDORSED TO NIGHT RN FOR CONTINUITY OF CARE. PT IS STABLE.
[2020-10-09 20:00] VITALS: BP 113/57
--- NOTE | 2020-10-09 20:00 | NUR ---
RECEIVED REPORT FROM [facility] NURSE. HEAD TO TOE ASSESSMENT COMPLETED. ORIENTED X3. BLIND. MALTESE SPEAKING. DENIES PAIN AT THIS TIME. BREATHING IS SLOW AND UNLABORED. LUNGS SOUNDS ARE CRACKLES/DIMINISHED IN ALL QUADRANTS. NO SOB, DYPSNEA, TROUBLE BREATHING. HOB ELEVATED> 3O. TOLERATING TREATMENT AT THIS TIME. BED AT LOWEST POSITION.CALL LIGHT WITHIN REACH. WILL CONTINUE TO MONITOR.
[2020-10-10] VITALS: BP 109/61
[2020-10-10] MEDS: NACL 0.9% 1,000 ML IV SCH (00:04)
[2020-10-10] MEDS: HYDRAGUARD CREAM TP SCH ×2 (00:04→13:00)
[2020-10-10 04:00] VITALS: BP 121/62
[2020-10-10] MEDS: PIPERACILLIN/TAZOBACTAM 2.25 GM in DEXTROSE 5% 50 ML IV SCH ×3 (05:25→20:43)
--- NOTE | 2020-10-10 06:00 | NUR ---
[facility] CALLED TO DIALYZE PT DURING THE DAY.
[2020-10-10 06:24] LABS: BASOPHILS % (AUTO) 1.1 % (0.0-2.0); EOSINOPHILS # (AUTO) 0.1 K/uL (0-0.4); EOSINOPHILS % (AUTO) 2.8 % (0.0-4.0); HEMATOCRIT 29.7 % (36-52); HEMOGLOBIN 9.9 g/dL (12.0-18.0); LYMPHOCYTES # (AUTO) 0.8 K/uL (2.0-11.5); LYMPHOCYTES % (AUTO) 19.2 % (20.5-51.1); MEAN CORPUSCULAR HEMOGLOBIN 31 pg (27-31); MEAN CORPUSCULAR HGB CONC 33 g/dL (33-37); MEAN CORPUSCULAR VOLUME 93.7 fL (80-94); MONOCYTES # (AUTO) 0.5 K/uL (0.8-1.0); MONOCYTES % (AUTO) 11.1 % (1.7-9.3); NEUTROPHILS # (AUTO) 2.7 K/uL (1.8-7.7); NEUTROPHILS % (AUTO) 65.8 % (42.2-75.2); PLATELET COUNT (AUTO) 218 K/uL (140-450); RED BLOOD CELL COUNT(AUTO) 3.16 MIL/uL (4.20-6.10); RED CELL DISTRIBUTION WIDTH 16.4 % (11.6-13.7); WHITE BLOOD COUNT (AUTO) 4.1 K/uL (4.8-10.8)
--- NOTE | 2020-10-10 06:24 | NUR ---
[facility] STERN CALLED TO VERIFY PT WAS STILL IN THE HOSPITAL.
[2020-10-10 06:25] LABS: ANION GAP 14.9 (8-16); CARBON DIOXIDE 26.9 mmol/L (21-32); CHLORIDE 99 mmol/L (98-107); GLUCOSE 115 mg/dL (74-106); POTASSIUM 4.8 mmol/L (3.5-5.1); SODIUM SERUM 136 mmol/L (136-145); UREA NITROGEN, BLOOD 42 mg/dL (7-18)
[2020-10-10] MEDS: LEVOTHYROXINE 0.075 MG TAB PO SCH (06:52)
[2020-10-10] MEDS: BLOOD GLUCOSE MONITORING 1 DEV DEV FS SCH ×4 (06:58→20:52)
--- NOTE | 2020-10-10 07:30 | NUR ---
PT RECEIVED FROM DAY SHIFT NURSE. PT IS IS WARM TO TOUCH AND SHOWS NO SIGNS OR SYMPTOMS OF DISTRESS. ALL SAFETY MEASURES ARE IN PLACE AND CALL LIGHT IS WITHIN REACH. WILL CONTINUE TO MONITOR.
[2020-10-10 08:00] VITALS: BP 110/55
[2020-10-10] MEDS: carvediloL 3.125 MG TAB PO SCH ×2 (08:00→16:18)
[2020-10-10 08:06] LABS: CREATININE 6.6 mg/dL (0.6-1.3)
[2020-10-10] MEDS: ATORVASTATIN 20 MG TAB PO SCH (09:34)
[2020-10-10] MEDS: APIXABAN 2.5 MG TAB PO SCH ×2 (09:35→20:53)
[2020-10-10] MEDS: ASPIRIN 81 MG TAB.CHEW PO SCH (09:36)
[2020-10-10] MEDS: VIT-B COMP/VIT-C/FOLIC ACID 1 TAB PO SCH ×2 (09:36→20:43)
--- NOTE | 2020-10-10 09:42 | NUR ---
MEDICATIONS GIVEN ORDERED. PT TOLERATED WELL. NO S/S OF DISTRESS. CALL LIGHT IS WITHIN REACH. SAFETY MEASURES IN PLACE. WILL CONTINUE TO MONITOR
--- NOTE | 2020-10-10 11:30 | NUR ---
PT BLOOD SUGAR IS 126. NO INSULIN NEEDED. SAFETY MEASURES IN PLACE. WILL CONTINUE TO MONITOR
[2020-10-10 12:00] VITALS: BP 126/57
--- NOTE | 2020-10-10 12:45 | NUR ---
OBTAINED CONSENT FOR HD FROM [facility] WITH SECOND NURSE VERIFIERIER. SAFETY MEASURES IN PLACE. WILL CONTINUE TO MONITOR
[2020-10-10] MEDS: GAUZE TP SCH (13:00)
--- NOTE | 2020-10-10 14:00 | NUR ---
NURSE FROM [facility] IS AT BEDSIDE. PT IS IN STABLE CONDITION NO S/S OF DISTRESS. WILL CONTINUE TO MONITOR
--- NOTE | 2020-10-10 14:50 | NUR ---
WOUND CARE ON RIGHT FOOT, AND BILATERAL TOES DONE ORDERED PT TOLERATED WELL. CALL LIGHT IS WITHIN REACH. ALL SAFETY MEASURES IN PLACE. WILL CONTINUE TO MONITOR.
--- NOTE | 2020-10-10 15:30 | NUR ---
HD NURSE HERE TO DO HD. REPORT GIVEN AT BEDSIDE. SAFETY MEASURES IN PLACE. WILL CONTINUE TO MONITOR
[2020-10-10 16:00] VITALS: BP 93/38
--- NOTE | 2020-10-10 16:30 | NUR ---
PT BLOOD SUGAR IS 136. NO INSULIN NEEDED AT THIS TIME. SAFETY MEASURES IN PLACE. WILL CONTINUE TO MONITOR
[2020-10-10] MEDS ORDERED: ALBUMIN HUMAN 25% 100 ML IV ONE (16:44)
[2020-10-10] MEDS ORDERED: ALBUMIN HUMAN 25% 100 ML IV SCH (17:00)
--- NOTE | 2020-10-10 18:19 | NUR ---
PT IN BED RESTING COMFORTABLY. HEMODIALYSIS NURSE AT BEDSIDE. PT IS ABLE TO MAKE NEEDS KNOWN. NO S/S OF DISTRESS. ALL SAFETY PRECAUTIONS ARE IN PLACE. CALL LIGHT IS WITHIN REACH. WILL CONTINUE TO MONITOR.
--- NOTE | 2020-10-10 18:51 | NUR ---
PT COMPLETED HD. REPORT RECEIVED FROM HD NURSE. PT GOT 3-L OUT. PT TOLERATED WELL. NO S/S DISTRESS. CALL LIGHT WITHIN REACH , ALL SAFETY MEASURES IN PLACE. WILL CONTINUE TO MONITOR.
--- NOTE | 2020-10-10 19:19 | NUR ---
PT ENDORSED TO BOOK CRITIC FOR CONTINUITY OF CARE. PT STABLE
--- NOTE | 2020-10-10 19:20 | NUR ---
RECEIVED REPORT FROM DAY SHIFT NURSE. PT IN BED RESTING IN BED WITH HOB ELEVATED. PT AOX4, ABLE TO MAKE NEEDS KNOWN. PT BLIND. RESPIRATIONS EVEN AND UNLABORED TO ROOM AIR. ABDOMEN IS SOFT AND NON-TENDER. SKIN IS WARM AND DRY. PT WITH WOUND ON RIGHT FOOT AND BILATERAL TOES, DRESSING IN PLACE. PT WITH LEFT AV SHUNT IN PLACE. IV ACCESS OF RIGHT UPPER ARM MIDLINE IN PLACE, IVF INFUSING WELL. PT DENIES ANY PAIN OR DISCOMFORT AT THIS TIME. NO REQUESTS MADE. SAFETY MEASURES IN PLACE. CALL LIGHT WITHIN REACH. WILL CONTINUE TO MONITOR.
[2020-10-10 20:00] VITALS: BP 114/60
--- NOTE | 2020-10-10 20:53 | NUR ---
VS STABLE. SCHEDULED MEDS GIVEN ORDERED. BLOOD SUGAR 121, NO INSULIN COVERAGE NEEDED. PT ASSISTED IN REPOSITIONING. NO REQUESTS MADE AT THIS TIME. PT KEPT COMFORTABLE, CALL LIGHT WITHIN REACH. WILL CONTINUE TO MONITOR.
--- NOTE | 2020-10-10 22:33 | NUR ---
PT RESTING IN BED, PT NOT IN DISTRESS. NO S/SX OF PAIN OR DISCOMFORT NOTED. PT KEPT COMFORTABLE. CALL LIGHT WITHIN REACH, WILL CONTINUE TO MONITOR.
[2020-10-11] VITALS: BP 140/42
[2020-10-11] MEDS: NACL 0.9% 1,000 ML IV SCH (00:08)
--- NOTE | 2020-10-11 00:23 | NUR ---
VS STABLE. PT IN BED RESTING. WOUND CARE DONE. PT DENIES ANY PAIN OR DISCOMFORT. NO REQUESTS MADE. SAFETY MEASURES IN PLACE. WILL CONTINUE TO MONITOR.
[2020-10-11] MEDS: HYDRAGUARD CREAM TP SCH ×2 (01:07→13:05)
--- NOTE | 2020-10-11 02:34 | NUR ---
ASLEEP. VISIBLE CHEST RISE AND FALL NOTED. NO S/SX OF PAIN OR DISCOMFORT NOTED. PT KEPT COMFORTABLE. SAFETY MEASURES IN PLACE, CALL LIGHT WITHIN REACH. WILL CONTINUE TO MONITOR.
[2020-10-11 04:00] VITALS: BP 143/53
[2020-10-11] MEDS: PIPERACILLIN/TAZOBACTAM 2.25 GM in DEXTROSE 5% 50 ML IV SCH ×2 (04:22→13:00)
--- NOTE | 2020-10-11 04:28 | NUR ---
VS STABLE. PT IN BED RESTING. DENIES ANY PAIN OR DISCOMFORT. PT TURNED AND REPOSITIONED. NO REQUESTS MADE AT THIS TIME. WILL CONTINUE TO MONITOR.
[2020-10-11] MEDS: LEVOTHYROXINE 0.075 MG TAB PO SCH (05:52)
--- NOTE | 2020-10-11 06:35 | NUR ---
BLOOD SUGAR 98. NO INSULIN COVERAGE NEEDED. WILL CONTINUE TO MONITOR.
[2020-10-11] MEDS: BLOOD GLUCOSE MONITORING 1 DEV DEV FS SCH ×2 (06:37→11:51)
[2020-10-11 06:42] LABS: BASOPHILS # (AUTO) 0.1 K/uL (0.00-0.22); EOSINOPHILS # (AUTO) 0.1 K/uL (0-0.4); EOSINOPHILS % (AUTO) 1.7 % (0.0-4.0); HEMATOCRIT 27.8 % (36-52); HEMOGLOBIN 9.3 g/dL (12.0-18.0); LYMPHOCYTES # (AUTO) 0.7 K/uL (2.0-11.5); LYMPHOCYTES % (AUTO) 16.5 % (20.5-51.1); MEAN CORPUSCULAR HEMOGLOBIN 31 pg (27-31); MEAN CORPUSCULAR HGB CONC 33 g/dL (33-37); MEAN CORPUSCULAR VOLUME 93.8 fL (80-94); MONOCYTES # (AUTO) 0.5 K/uL (0.8-1.0); MONOCYTES % (AUTO) 10.9 % (1.7-9.3); NEUTROPHILS % (AUTO) 68.9 % (42.2-75.2); PLATELET COUNT (AUTO) 203 K/uL (140-450); RED BLOOD CELL COUNT(AUTO) 2.97 MIL/uL (4.20-6.10); RED CELL DISTRIBUTION WIDTH 16.7 % (11.6-13.7); WHITE BLOOD COUNT (AUTO) 4.3 K/uL (4.8-10.8)
--- NOTE | 2020-10-11 07:11 | NUR ---
ENDORSED TO DAY SHIFT NURSE FOR CONTINUITY OF CARE
--- NOTE | 2020-10-11 07:15 | NUR ---
RECEIVED PATIENT FROM NIGHT NURSE. PATIENT IN BED AWAKE AND ALERT. [place] SPEAKING ONLY BUT ABLE TO MAKE NEEDS KNOWN. RESP EVEN AND UNLABORED ON ROOM AIR. DENIED OF PAIN AT THIS TIME. PATIENT HAS DISCHARGE ORDER PENDING HOSPICE EVAL. HD PT ON MWF, LAV SHUT. XI MIDLINE INFUSING NS 40ML/HR. PT IS LEGALLY BLIND IN LEFT EYE AND VERY LITTLE VISION TO RIGHT EYE. HOB ELEVATED. CALL LIGHT WITHIN REACH. WILL CONTINUE TO MONITOR.
[2020-10-11 07:39] LABS: ANION GAP 16.1 (8-16); CHLORIDE 101 mmol/L (98-107); GLUCOSE 106 mg/dL (74-106); POTASSIUM 4.1 mmol/L (3.5-5.1); SODIUM SERUM 139 mmol/L (136-145); UREA NITROGEN, BLOOD 24 mg/dL (7-18)
[2020-10-11 08:00] VITALS: BP 132/52
[2020-10-11] MEDS: ASPIRIN 81 MG TAB.CHEW PO SCH (08:26)
[2020-10-11] MEDS: APIXABAN 2.5 MG TAB PO SCH (08:26)
[2020-10-11] MEDS: ATORVASTATIN 20 MG TAB PO SCH (08:26)
[2020-10-11] MEDS: carvediloL 3.125 MG TAB PO SCH (08:26)
[2020-10-11] MEDS: VIT-B COMP/VIT-C/FOLIC ACID 1 TAB PO SCH (08:26)
--- NOTE | 2020-10-11 08:37 | NUR ---
PATIENT IN BED AWAKE AND ALERT. MORNING ROUTINE MEDICATIONS GIVEN, PATIENT TOLERATED WELL. RESP EVEN AND UNLABORED ON ROOM AIR. PATIENT ABLE TO MAKE NEEDS KNOWN. DIABETIC WOUNDS NOTED TO LEFT TOE, RIGHT TOE AND HEEL. COVERED WITH GAUZE INTACT, NO ACTIVE DRAINAGE AT THIS TIME. XI MIDLINE INFUSING NS 20ML/HR. PLAN OF CARE DISCUSSED, PATIENT NODDED UNDERSTANDING. CALL LIGHT WITHIN REACH. WILL CONTINUE TO MONITOR.
[2020-10-11 09:12] LABS: CREATININE 4.8 mg/dL (0.6-1.3)
--- NOTE | 2020-10-11 10:25 | NUR ---
PATIENT IN BED SLEEPING, CHEST NOTED RISING. NO NOTED ACUTE S/S DISTRESS AT THIS TIME. CALL LIGHT WITHIN REACH. WILL CONTINUE TO MONITOR.
[2020-10-11] MEDS ORDERED: CEPH250C16 PO (10:57)
[2020-10-11] MEDS ORDERED: ROC2I IV (10:57)
--- NOTE | 2020-10-11 11:05 | NUR ---
SPOKE TO TONIE AT [facility] AND GAVE REPORT. XI MIDLINE WILL BE LEFT IN PLACE FOR HOME IV ANTIBIOTIC, PER TONIE REQUEST. [facility] WILL BE PICKING UP PATIENT AT 1230. PATIENT MADE AWARE AND VERBALIZED UNDERSTANDING.
[2020-10-11 11:26] VITALS: BP 136/55
[2020-10-11 12:00] VITALS: BP 136/55
--- NOTE | 2020-10-11 12:05 | NUR ---
WOUND CARE PROVIDED. PATIENT TOLERATED WELL. WILL CONTINUE TO MONITOR. Addendum: 10/11/20 at 1223 by Lalita Campbell RN BLOOD SUGAR 104. NO INSULIN REQUIRED.
--- NOTE | 2020-10-11 12:50 | NUR ---
PATIENT LEFT WITH [facility] FOR HOME WITH ALL PERSONAL BELONGINGS. DISCHARGE INSTRUCTIONS PROVIDED, PATIENT VERBALIZED UNDERSTANDING.
[2020-10-11] MEDS: GAUZE TP SCH (13:05)
== END 2020-10-11 12:40 | disposition hospice, home (50) | DRG 871 ==
LOC: MED 01:35 → MTU 05:44
PROVIDERS: ADMIT Family Medicine; ATTEND Family Medicine
PROC: 5A1D70Z Performance of Urinary Filtration, Intermittent, Less than 6 Hours Per Day (ICD-10-PCS; 2020-10-03)
PROC: 5A09357 Assistance with Respiratory Ventilation, Less than 24 Consecutive Hours, Continuous Positive Airway Pressure (ICD-10-PCS; 2020-10-03)
PROC: 5A1D70Z Performance of Urinary Filtration, Intermittent, Less than 6 Hours Per Day (ICD-10-PCS; 2020-10-04)
PROC: 5A1D70Z Performance of Urinary Filtration, Intermittent, Less than 6 Hours Per Day (ICD-10-PCS; 2020-10-05)
PROC: 05HY33Z Insertion of Infusion Device into Upper Vein, Percutaneous Approach (ICD-10-PCS; principal; 2020-10-07)
PROC: B54MZZA Ultrasonography of Right Upper Extremity Veins, Guidance (ICD-10-PCS; 2020-10-07)
PROC: 5A1D70Z Performance of Urinary Filtration, Intermittent, Less than 6 Hours Per Day (ICD-10-PCS; 2020-10-07)
PROC: 5A1D70Z Performance of Urinary Filtration, Intermittent, Less than 6 Hours Per Day (ICD-10-PCS; 2020-10-10)
DX: A41.9 Sepsis, unspecified organism (principal); I50.43 Acute on chronic combined systolic (congestive) and diastolic (congestive) heart failure; N17.0 Acute kidney failure with tubular necrosis; N18.6 End stage renal disease; J96.01 Acute respiratory failure with hypoxia; M86.8X7 Other osteomyelitis, ankle and foot; E46 Unspecified protein-calorie malnutrition; I13.2 Hypertensive heart and chronic kidney disease with heart failure and with stage 5 chronic kidney disease, or end stage renal disease; J98.11 Atelectasis; I16.1 Hypertensive emergency; L03.115 Cellulitis of right lower limb; M46.26 Osteomyelitis of vertebra, lumbar region; E11.69 Type 2 diabetes mellitus with other specified complication; L98.499 Non-pressure chronic ulcer of skin of other sites with unspecified severity; E11.22 Type 2 diabetes mellitus with diabetic chronic kidney disease; E11.40 Type 2 diabetes mellitus with diabetic neuropathy, unspecified; E11.622 Type 2 diabetes mellitus with other skin ulcer; H54.8 Legal blindness, as defined in USA; E03.9 Hypothyroidism, unspecified; I48.91 Unspecified atrial fibrillation; E87.5 Hyperkalemia; Z20.822 Contact with and (suspected) exposure to COVID-19; E11.621 Type 2 diabetes mellitus with foot ulcer; R23.8 Other skin changes; D63.8 Anemia in other chronic diseases classified elsewhere; E78.5 Hyperlipidemia, unspecified; E83.41 Hypermagnesemia; Z99.2 Dependence on renal dialysis; Z68.29 Body mass index [BMI] 29.0-29.9, adult; Z79.899 Other long term (current) drug therapy; Z82.49 Family history of ischemic heart disease and other diseases of the circulatory system
CPT/HCPCS: 36415; 36600; 70450; 71045; 71275; 73630; 78300; 80048; 80053; 81001; 82150; 82550; 82728; 82803; 82948; 83036; 83605; 83615; 83690; 83735; 83880; 84100; 84439; 84443; 84484; 85025; 85379; 85384; 85610; 85730; 86140; 87040; 87081; 87086; 87804; 93005; 93925; 93970; 94003; 96365; 96375; 97110; 97163-GP; 97530; 99285; A9503; J0360; J0696; J1100; J2060; J2270; J2543; J7030; J7060; P9046; Q9967; U0003

== ENCOUNTER 2020-10-17 20:40 | Inpatient (IN) | payer OTHER ==
[~2020-10-17] VITALS: Ht 172.7 cm; Wt 89.8 kg
[2020-10-17 20:40] VITALS: BP 135/60
[~2020-10-17 20:40] MED LIST changes: -ACET-503 PO; +APIX2.5 PO; +ASPI-1822 PO; +ATOR40TA PO; -BEN50 PO; +CARV3.12 PO; -CARV6.25 PO; +CEPH250C16 PO; -GABA100C PO; +LACT1CAP50 PO; -LANTUS SC; -ROC.25 PO; +ROC2I IV; +SYN.075 PO; +VITA1TAB44 PO
[2020-10-17 21:21] LABS: BASOPHILS % (AUTO) 0.4 % (0.0-2.0); EOSINOPHILS % (AUTO) 0.5 % (0.0-4.0); HEMOGLOBIN 9.9 g/dL (12.0-18.0); LYMPHOCYTES # (AUTO) 0.8 K/uL (2.0-11.5); LYMPHOCYTES % (AUTO) 11.8 % (20.5-51.1); MEAN CORPUSCULAR HEMOGLOBIN 32 pg (27-31); MEAN CORPUSCULAR HGB CONC 33 g/dL (33-37); MEAN CORPUSCULAR VOLUME 96.4 fL (80-94); MONOCYTES # (AUTO) 0.3 K/uL (0.8-1.0); MONOCYTES % (AUTO) 5.3 % (1.7-9.3); NEUTROPHILS # (AUTO) 5.3 K/uL (1.8-7.7); PLATELET COUNT (AUTO) 90 K/uL (140-450); RED BLOOD CELL COUNT(AUTO) 3.11 MIL/uL (4.20-6.10); RED CELL DISTRIBUTION WIDTH 19.2 % (11.6-13.7); WHITE BLOOD COUNT (AUTO) 6.5 K/uL (4.8-10.8)
[2020-10-17 21:32] LABS: CHLORIDE 99 mmol/L (98-107); GLUCOSE 232 mg/dL (74-106); SODIUM SERUM 138 mmol/L (136-145); UREA NITROGEN, BLOOD 50 mg/dL (7-18)
[2020-10-17 21:34] LABS: PROTHROMBIN TIME 17.6 secs (10.8-13.4)
[2020-10-17 21:43] LABS: CREATININE 6.5 mg/dL (0.6-1.3)
[2020-10-17] MEDS ORDERED: MORPHINE SULFATE 2 MG/ML SYR IVP PRN (23:50)
[2020-10-17] MEDS ORDERED: HYDROcodone/APAP 5/325 MG 1 TAB TAB PO PRN (23:50)
[2020-10-17] MEDS ORDERED: VANCOMYCIN PER PHARMACY MC PRN (23:50)
[2020-10-18] MEDS ORDERED: ROC.25 PO (00:17)
[2020-10-18] MEDS ORDERED: DIPH50CA69 PO (00:17)
[2020-10-18 00:19] LABS: ANION GAP 15.4 (8-16); ASPARTATE AMINOTRANSFERASE 2373 U/L (15-37); CARBON DIOXIDE 27.6 mmol/L (21-32); CHLORIDE 100 mmol/L (98-107); GLUCOSE 238 mg/dL (74-106); SALICYLATE 8.8 mg/dL (2.8-20.0); SODIUM SERUM 138 mmol/L (136-145); TOTAL BILIRUBIN 0.4 mg/dL (0.0-1.0); UREA NITROGEN, BLOOD 50 mg/dL (7-18)
[2020-10-18 00:21] LABS: ACETAMINOPHEN < 0.5 ug/ml (10-30)
[2020-10-18 00:23] LABS: CREATININE 6.5 mg/dL (0.6-1.3)
[2020-10-18 00:35] LABS: BASOPHILS % (AUTO) 0.6 % (0.0-2.0); EOSINOPHILS % (AUTO) 0.8 % (0.0-4.0); HEMATOCRIT 31.2 % (36-52); HEMOGLOBIN 10.2 g/dL (12.0-18.0); LYMPHOCYTES % (AUTO) 13.7 % (20.5-51.1); MEAN CORPUSCULAR HEMOGLOBIN 32 pg (27-31); MEAN CORPUSCULAR HGB CONC 33 g/dL (33-37); MEAN CORPUSCULAR VOLUME 97.1 fL (80-94); MONOCYTES % (AUTO) 6.6 % (1.7-9.3); NEUTROPHILS # (AUTO) 5.4 K/uL (1.8-7.7); NEUTROPHILS % (AUTO) 78.3 % (42.2-75.2); PLATELET COUNT (AUTO) 94 K/uL (140-450); RED BLOOD CELL COUNT(AUTO) 3.22 MIL/uL (4.20-6.10); RED CELL DISTRIBUTION WIDTH 19.7 % (11.6-13.7); WHITE BLOOD COUNT (AUTO) 6.9 K/uL (4.8-10.8)
[2020-10-18 00:36] LABS: EOSINOPHILS # (AUTO) 0.1 K/uL (0-0.4); LYMPHOCYTES # (AUTO) 0.9 K/uL (2.0-11.5); MONOCYTES # (AUTO) 0.5 K/uL (0.8-1.0)
[2020-10-18] MEDS ORDERED: hePARIN / DEXT 5% PREMIX 250 ML IV SCH (00:40)
[2020-10-18] MEDS ORDERED: VANCOMYCIN 1GM/DEXT 5% PREMIX 200 ML IV SCH (01:00)
[2020-10-18] MEDS ORDERED: VANCOMYCIN 1,000 MG VIAL ONE (01:09)
[2020-10-18 03:00] VITALS: BP 104/39
[2020-10-18 08:00] VITALS: BP 105/55
[2020-10-18] MEDS ORDERED: LORazepam 2 MG/ML VIAL IM/IVP PRN (08:45)
[2020-10-18] MEDS ORDERED: MORPHINE SULFATE 2 MG/ML SYR IVP PRN (08:45)
[2020-10-18] MEDS ORDERED: ZOLPIDEM 5 MG TAB PO PRN (08:45)
[2020-10-18] MEDS ORDERED: ACETAMINOPHEN 325 MG TAB PO PRN (08:45)
[2020-10-18] MEDS ORDERED: MAG SULF 2000 MG/WATER PREMIX 50 ML IV PRN (08:45)
[2020-10-18] MEDS ORDERED: NACL 0.9% 1,000 ML IV SCH (08:45)
[2020-10-18] MEDS ORDERED: HYDROcodone/APAP 5/325 MG 1 TAB TAB PO PRN (08:45)
[2020-10-18] MEDS ORDERED: ONDANSETRON 4 MG/2 ML VIAL IM/IVP PRN (08:45)
[2020-10-18] MEDS ORDERED: DOCUSATE SODIUM 100 MG GELCAP PO PRN (08:45)
[2020-10-18] MEDS ORDERED: POTASSIUM CHLORIDE 10 MEQ TABER PO PRN (08:45)
[2020-10-18] MEDS: APIXABAN 2.5 MG TAB PO SCH ×2 (09:00→21:27)
[2020-10-18] MEDS ORDERED: B BIF PO SCH (09:00)
[2020-10-18] MEDS ORDERED: [UNRECOGNIZED DRUG - OTHER] PO SCH (09:00)
[2020-10-18] MEDS ORDERED: carvediloL 3.125 MG TAB PO SCH (09:00)
[2020-10-18] MEDS ORDERED: S THERM PO SCH (09:00)
[2020-10-18] MEDS: LACTOBACILLUS RHAMNOSUS GG 1 EACH CAP PO SCH (09:36)
[2020-10-18] MEDS: VIT-B COMP/VIT-C/FOLIC ACID 1 TAB PO SCH ×2 (09:36→21:26)
[2020-10-18] MEDS: ATORVASTATIN 20 MG TAB PO SCH (09:37)
[2020-10-18] MEDS: ASPIRIN 81 MG TAB.CHEW PO SCH (09:37)
[2020-10-18 09:50] LABS: ANION GAP 12.2 (8-16); CARBON DIOXIDE 31.9 mmol/L (21-32); CHLORIDE 100 mmol/L (98-107); GLUCOSE 151 mg/dL (74-106); POTASSIUM 5.1 mmol/L (3.5-5.1); SODIUM SERUM 139 mmol/L (136-145); UREA NITROGEN, BLOOD 53 mg/dL (7-18)
[2020-10-18 10:46] LABS: CREATININE 6.7 mg/dL (0.6-1.3)
[2020-10-18] MEDS ORDERED: HEPARIN PER PHARMACY MC PRN (11:25)
[2020-10-18 11:30] LABS: CHOL/HDL RATIO 2.4 (1-4.5); MAGNESIUM 2.5 mg/dL (1.8-2.4); PHOSPHORUS 6.8 mg/dL (2.5-4.9); THYROID STIMULATING HORMONE 6.82 uIU/mL (0.34-3.74)
[2020-10-18 16:00] VITALS: BP 101/42
[2020-10-18] MEDS: carvediloL 3.125 MG TAB PO SCH (17:00)
[2020-10-18 21:30] VITALS: BP 111/48
[2020-10-19 00:12] VITALS: BP 111/48
[2020-10-19] MEDS: LEVOTHYROXINE 0.075 MG TAB PO SCH (05:50)
[2020-10-19 05:59] LABS: ANION GAP 12.6 (8-16); BASOPHILS # (AUTO) 0.1 K/uL (0.00-0.22); BASOPHILS % (AUTO) 1.1 % (0.0-2.0); CARBON DIOXIDE 29.7 mmol/L (21-32); CHLORIDE 101 mmol/L (98-107); EOSINOPHILS # (AUTO) 0.1 K/uL (0-0.4); EOSINOPHILS % (AUTO) 1.3 % (0.0-4.0); GLUCOSE 97 mg/dL (74-106); HEMATOCRIT 30.7 % (36-52); LYMPHOCYTES # (AUTO) 0.8 K/uL (2.0-11.5); LYMPHOCYTES % (AUTO) 12.4 % (20.5-51.1); MEAN CORPUSCULAR HEMOGLOBIN 32 pg (27-31); MEAN CORPUSCULAR HGB CONC 33 g/dL (33-37); MEAN CORPUSCULAR VOLUME 96.5 fL (80-94); MONOCYTES # (AUTO) 0.4 K/uL (0.8-1.0); MONOCYTES % (AUTO) 6.8 % (1.7-9.3); NEUTROPHILS # (AUTO) 4.8 K/uL (1.8-7.7); NEUTROPHILS % (AUTO) 78.4 % (42.2-75.2); PLATELET COUNT (AUTO) 105 K/uL (140-450); POTASSIUM 4.3 mmol/L (3.5-5.1); RED BLOOD CELL COUNT(AUTO) 3.19 MIL/uL (4.20-6.10); RED CELL DISTRIBUTION WIDTH 18.7 % (11.6-13.7); SODIUM SERUM 139 mmol/L (136-145); UREA NITROGEN, BLOOD 36 mg/dL (7-18); WHITE BLOOD COUNT (AUTO) 6.2 K/uL (4.8-10.8)
[2020-10-19 06:03] LABS: MAGNESIUM 2.1 mg/dL (1.8-2.4); PHOSPHORUS 5.6 mg/dL (2.5-4.9)
[2020-10-19 06:04] LABS: CREATININE 5.3 mg/dL (0.6-1.3)
[2020-10-19 07:08] LABS: HEPATITIS A ANTIBODY IGM Negative (Negative); HEPATITIS B CORE AB TOTAL Negative (Negative); HEPATITIS B SURFACE ANTIBODY Reactive (.); HEPATITIS B SURFACE ANTIGEN Negative (Negative)
[2020-10-19 08:00] VITALS: BP 167/49
[2020-10-19 08:08] LABS: T4 (THYROXINE) 5.5 ug/dL (4.5-12.0)
[2020-10-19] MEDS: APIXABAN 2.5 MG TAB PO SCH ×2 (09:00→21:00)
[2020-10-19] MEDS: carvediloL 3.125 MG TAB PO SCH ×2 (09:55→17:00)
[2020-10-19] MEDS: ASPIRIN 81 MG TAB.CHEW PO SCH (10:14)
[2020-10-19] MEDS: ATORVASTATIN 20 MG TAB PO SCH (10:15)
[2020-10-19] MEDS: LACTOBACILLUS RHAMNOSUS GG 1 EACH CAP PO SCH (10:15)
[2020-10-19] MEDS: VIT-B COMP/VIT-C/FOLIC ACID 1 TAB PO SCH ×2 (10:16→21:53)
[2020-10-19] MEDS ORDERED: VANCOMYCIN 1,000 MG in DEXTROSE 5% 250 ML IV SCH (12:00)
[2020-10-19 20:00] VITALS: BP 146/46
[2020-10-20 04:00] VITALS: BP 118/54
[2020-10-20] MEDS: LEVOTHYROXINE 0.075 MG TAB PO SCH (05:58)
[2020-10-20 07:16] LABS: ANION GAP 13.4 (8-16); CHLORIDE 98 mmol/L (98-107); GLUCOSE 135 mg/dL (74-106); POTASSIUM 4.4 mmol/L (3.5-5.1); SODIUM SERUM 135 mmol/L (136-145); UREA NITROGEN, BLOOD 49 mg/dL (7-18)
[2020-10-20 07:18] LABS: MAGNESIUM 2.1 mg/dL (1.8-2.4)
[2020-10-20 07:21] LABS: CREATININE 6.6 mg/dL (0.6-1.3)
[2020-10-20 07:35] LABS: BASOPHILS # (AUTO) 0.1 K/uL (0.00-0.22); BASOPHILS % (AUTO) 1.1 % (0.0-2.0); EOSINOPHILS # (AUTO) 0.1 K/uL (0-0.4); EOSINOPHILS % (AUTO) 1.4 % (0.0-4.0); HEMATOCRIT 28.5 % (36-52); HEMOGLOBIN 9.3 g/dL (12.0-18.0); LYMPHOCYTES # (AUTO) 0.8 K/uL (2.0-11.5); LYMPHOCYTES % (AUTO) 14.6 % (20.5-51.1); MEAN CORPUSCULAR HEMOGLOBIN 32 pg (27-31); MEAN CORPUSCULAR HGB CONC 33 g/dL (33-37); MEAN CORPUSCULAR VOLUME 96.3 fL (80-94); MONOCYTES # (AUTO) 0.4 K/uL (0.8-1.0); MONOCYTES % (AUTO) 8.1 % (1.7-9.3); NEUTROPHILS # (AUTO) 4.1 K/uL (1.8-7.7); NEUTROPHILS % (AUTO) 74.8 % (42.2-75.2); PLATELET COUNT (AUTO) 94 K/uL (140-450); RED BLOOD CELL COUNT(AUTO) 2.96 MIL/uL (4.20-6.10); RED CELL DISTRIBUTION WIDTH 18.7 % (11.6-13.7); WHITE BLOOD COUNT (AUTO) 5.4 K/uL (4.8-10.8)
[2020-10-20] MEDS: carvediloL 3.125 MG TAB PO SCH ×2 (08:00→16:56)
[2020-10-20] MEDS: APIXABAN 2.5 MG TAB PO SCH ×2 (09:00→20:37)
[2020-10-20] MEDS: ASPIRIN 81 MG TAB.CHEW PO SCH (09:35)
[2020-10-20] MEDS: LACTOBACILLUS RHAMNOSUS GG 1 EACH CAP PO SCH (09:35)
[2020-10-20] MEDS: ATORVASTATIN 20 MG TAB PO SCH (09:36)
[2020-10-20] MEDS: VIT-B COMP/VIT-C/FOLIC ACID 1 TAB PO SCH ×2 (09:37→20:36)
[2020-10-20 16:00] VITALS: BP 146/46
[2020-10-21 04:00] VITALS: BP 146/62
[2020-10-21 06:04] LABS: ANION GAP 10.9 (8-16); CHLORIDE 97 mmol/L (98-107); GLUCOSE 159 mg/dL (74-106); POTASSIUM 3.9 mmol/L (3.5-5.1); SODIUM SERUM 134 mmol/L (136-145); UREA NITROGEN, BLOOD 34 mg/dL (7-18)
[2020-10-21 06:19] LABS: BASOPHILS % (AUTO) 0.8 % (0.0-2.0); EOSINOPHILS # (AUTO) 0.1 K/uL (0-0.4); EOSINOPHILS % (AUTO) 1.5 % (0.0-4.0); HEMOGLOBIN 9.2 g/dL (12.0-18.0); LYMPHOCYTES # (AUTO) 0.7 K/uL (2.0-11.5); LYMPHOCYTES % (AUTO) 12.4 % (20.5-51.1); MEAN CORPUSCULAR HEMOGLOBIN 32 pg (27-31); MEAN CORPUSCULAR HGB CONC 33 g/dL (33-37); MEAN CORPUSCULAR VOLUME 96.7 fL (80-94); MONOCYTES # (AUTO) 0.4 K/uL (0.8-1.0); MONOCYTES % (AUTO) 7.6 % (1.7-9.3); NEUTROPHILS # (AUTO) 4.2 K/uL (1.8-7.7); NEUTROPHILS % (AUTO) 77.7 % (42.2-75.2); PLATELET COUNT (AUTO) 88 K/uL (140-450); RED CELL DISTRIBUTION WIDTH 18.9 % (11.6-13.7); WHITE BLOOD COUNT (AUTO) 5.3 K/uL (4.8-10.8)
[2020-10-21 06:22] LABS: MAGNESIUM 1.9 mg/dL (1.8-2.4); PHOSPHORUS 4.9 mg/dL (2.5-4.9)
[2020-10-21] MEDS: LEVOTHYROXINE 0.075 MG TAB PO SCH (06:23)
[2020-10-21] MEDS: ASPIRIN 81 MG TAB.CHEW PO SCH ×2 (09:00→09:37)
[2020-10-21] MEDS: LACTOBACILLUS RHAMNOSUS GG 1 EACH CAP PO SCH ×2 (09:00→09:38)
[2020-10-21] MEDS: APIXABAN 2.5 MG TAB PO SCH ×2 (09:00→21:00)
[2020-10-21] MEDS: ATORVASTATIN 20 MG TAB PO SCH ×2 (09:00→09:38)
[2020-10-21] MEDS: VIT-B COMP/VIT-C/FOLIC ACID 1 TAB PO SCH ×3 (09:00→21:00)
[2020-10-21] MEDS: carvediloL 3.125 MG TAB PO SCH ×3 (09:30→17:00)
[2020-10-21] MEDS ORDERED: IV Vancomycin IV (10:03)
[2020-10-21] MEDS ORDERED: VANCOMYCIN 1,000 MG in DEXTROSE 5% 250 ML IV SCH (12:00)
[2020-10-22] MEDS: LEVOTHYROXINE 0.075 MG TAB PO SCH (06:01)
[2020-10-22 08:00] VITALS: BP 157/73
[2020-10-22] MEDS: APIXABAN 2.5 MG TAB PO SCH ×2 (09:00→21:22)
[2020-10-22 09:45] LABS: BASOPHILS # (AUTO) 0.1 K/uL (0.00-0.22); BASOPHILS % (AUTO) 1.3 % (0.0-2.0); EOSINOPHILS # (AUTO) 0.1 K/uL (0-0.4); HEMATOCRIT 28.2 % (36-52); HEMOGLOBIN 9.4 g/dL (12.0-18.0); LYMPHOCYTES # (AUTO) 0.8 K/uL (2.0-11.5); LYMPHOCYTES % (AUTO) 14.2 % (20.5-51.1); MEAN CORPUSCULAR HEMOGLOBIN 32 pg (27-31); MEAN CORPUSCULAR HGB CONC 33 g/dL (33-37); MEAN CORPUSCULAR VOLUME 95.3 fL (80-94); MONOCYTES # (AUTO) 0.5 K/uL (0.8-1.0); MONOCYTES % (AUTO) 8.6 % (1.7-9.3); NEUTROPHILS % (AUTO) 74.9 % (42.2-75.2); PLATELET COUNT (AUTO) 81 K/uL (140-450); RED BLOOD CELL COUNT(AUTO) 2.96 MIL/uL (4.20-6.10); RED CELL DISTRIBUTION WIDTH 17.9 % (11.6-13.7); WHITE BLOOD COUNT (AUTO) 5.3 K/uL (4.8-10.8)
[2020-10-22 09:52] LABS: ANION GAP 14.4 (8-16); CARBON DIOXIDE 26.9 mmol/L (21-32); CHLORIDE 96 mmol/L (98-107); GLUCOSE 104 mg/dL (74-106); POTASSIUM 4.3 mmol/L (3.5-5.1); SODIUM SERUM 133 mmol/L (136-145); UREA NITROGEN, BLOOD 45 mg/dL (7-18)
[2020-10-22 09:56] LABS: PHOSPHORUS 5.6 mg/dL (2.5-4.9)
[2020-10-22 10:04] LABS: CREATININE 6.3 mg/dL (0.6-1.3)
[2020-10-22] MEDS: ASPIRIN 81 MG TAB.CHEW PO SCH (10:28)
[2020-10-22] MEDS: LACTOBACILLUS RHAMNOSUS GG 1 EACH CAP PO SCH (10:28)
[2020-10-22] MEDS: VIT-B COMP/VIT-C/FOLIC ACID 1 TAB PO SCH ×2 (10:29→21:22)
[2020-10-22] MEDS: carvediloL 3.125 MG TAB PO SCH ×2 (10:29→17:18)
[2020-10-22] MEDS: ATORVASTATIN 20 MG TAB PO SCH (10:31)
[2020-10-22 16:00] VITALS: BP 127/58
[2020-10-22 20:00] VITALS: BP 135/79
[2020-10-22] MEDS ORDERED: CRUSHER, PILL MC ONE (21:21)
[2020-10-23 05:19] VITALS: BP 160/68
[2020-10-23] MEDS: LEVOTHYROXINE 0.075 MG TAB PO SCH (05:46)
[2020-10-23 05:56] LABS: ANION GAP 12.5 (8-16); CARBON DIOXIDE 30.1 mmol/L (21-32); CHLORIDE 97 mmol/L (98-107); GLUCOSE 146 mg/dL (74-106); POTASSIUM 3.6 mmol/L (3.5-5.1); SODIUM SERUM 136 mmol/L (136-145); UREA NITROGEN, BLOOD 32 mg/dL (7-18)
[2020-10-23 06:04] LABS: CREATININE 4.8 mg/dL (0.6-1.3)
[2020-10-23 06:09] LABS: MAGNESIUM 1.8 mg/dL (1.8-2.4)
[2020-10-23 06:20] LABS: BASOPHILS % (AUTO) 0.6 % (0.0-2.0); EOSINOPHILS # (AUTO) 0.1 K/uL (0-0.4); EOSINOPHILS % (AUTO) 0.9 % (0.0-4.0); HEMATOCRIT 28.4 % (36-52); HEMOGLOBIN 9.5 g/dL (12.0-18.0); LYMPHOCYTES # (AUTO) 0.6 K/uL (2.0-11.5); LYMPHOCYTES % (AUTO) 11.3 % (20.5-51.1); MEAN CORPUSCULAR HEMOGLOBIN 32 pg (27-31); MEAN CORPUSCULAR HGB CONC 33 g/dL (33-37); MONOCYTES # (AUTO) 0.6 K/uL (0.8-1.0); MONOCYTES % (AUTO) 10.4 % (1.7-9.3); NEUTROPHILS # (AUTO) 4.2 K/uL (1.8-7.7); NEUTROPHILS % (AUTO) 76.8 % (42.2-75.2); PLATELET COUNT (AUTO) 54 K/uL (140-450); RED BLOOD CELL COUNT(AUTO) 2.99 MIL/uL (4.20-6.10); RED CELL DISTRIBUTION WIDTH 19.2 % (11.6-13.7); WHITE BLOOD COUNT (AUTO) 5.5 K/uL (4.8-10.8)
[2020-10-23] MEDS: carvediloL 3.125 MG TAB PO SCH ×2 (08:00→16:44)
[2020-10-23] MEDS: APIXABAN 2.5 MG TAB PO SCH ×2 (09:00→21:00)
[2020-10-23] MEDS: LACTOBACILLUS RHAMNOSUS GG 1 EACH CAP PO SCH (09:18)
[2020-10-23] MEDS: ASPIRIN 81 MG TAB.CHEW PO SCH (09:18)
[2020-10-23] MEDS: VIT-B COMP/VIT-C/FOLIC ACID 1 TAB PO SCH ×2 (09:18→22:05)
[2020-10-23] MEDS: ATORVASTATIN 20 MG TAB PO SCH (09:18)
[2020-10-23 13:23] VITALS: BP 161/69
[2020-10-23 20:00] VITALS: BP 129/56
[2020-10-24 04:00] VITALS: BP 151/56
[2020-10-24] MEDS: LEVOTHYROXINE 0.075 MG TAB PO SCH (06:40)
[2020-10-24] MEDS: carvediloL 3.125 MG TAB PO SCH (08:00)
[2020-10-24] MEDS: APIXABAN 2.5 MG TAB PO SCH (09:00)
[2020-10-24] MEDS: ASPIRIN 81 MG TAB.CHEW PO SCH (09:44)
[2020-10-24] MEDS: VIT-B COMP/VIT-C/FOLIC ACID 1 TAB PO SCH (09:44)
[2020-10-24] MEDS: LACTOBACILLUS RHAMNOSUS GG 1 EACH CAP PO SCH (09:45)
[2020-10-24] MEDS: ATORVASTATIN 20 MG TAB PO SCH (09:45)
[2020-10-24 13:41] VITALS: BP 121/39
[2020-10-24] MEDS ORDERED: VANCOMYCIN 500 MG in DEXTROSE 5% 100 ML IV SCH (17:00)
== END 2020-10-24 16:10 | disposition hospice, home (50) | DRG 280 ==
LOC: MED 20:40 → MTU 10-18 00:06 → MMU 10-18 10:34 → MTU 10-18 10:38
PROC: 05HY33Z Insertion of Infusion Device into Upper Vein, Percutaneous Approach (ICD-10-PCS; principal; 2020-10-18)
PROC: B54MZZA Ultrasonography of Right Upper Extremity Veins, Guidance (ICD-10-PCS; 2020-10-18)
PROC: 5A1D70Z Performance of Urinary Filtration, Intermittent, Less than 6 Hours Per Day (ICD-10-PCS; 2020-10-18)
PROC: 5A1D70Z Performance of Urinary Filtration, Intermittent, Less than 6 Hours Per Day (ICD-10-PCS; 2020-10-20)
PROC: 5A1D70Z Performance of Urinary Filtration, Intermittent, Less than 6 Hours Per Day (ICD-10-PCS; 2020-10-21)
PROC: 5A1D70Z Performance of Urinary Filtration, Intermittent, Less than 6 Hours Per Day (ICD-10-PCS; 2020-10-23)
DX: T82.524A Displacement of infusion catheter, initial encounter (principal); I21.4 Non-ST elevation (NSTEMI) myocardial infarction; N18.6 End stage renal disease; N17.0 Acute kidney failure with tubular necrosis; I13.2 Hypertensive heart and chronic kidney disease with heart failure and with stage 5 chronic kidney disease, or end stage renal disease; I42.2 Other hypertrophic cardiomyopathy; M86.8X7 Other osteomyelitis, ankle and foot; M46.26 Osteomyelitis of vertebra, lumbar region; E87.1 Hypo-osmolality and hyponatremia; D68.59 Other primary thrombophilia; Z51.5 Encounter for palliative care; Z66 Do not resuscitate; Z20.822 Contact with and (suspected) exposure to COVID-19; I50.9 Heart failure, unspecified; E11.22 Type 2 diabetes mellitus with diabetic chronic kidney disease; Y83.8 Other surgical procedures as the cause of abnormal reaction of the patient, or of later complication, without mention of misadventure at the time of the procedure; E83.39 Other disorders of phosphorus metabolism; E83.41 Hypermagnesemia; D69.6 Thrombocytopenia, unspecified; R62.7 Adult failure to thrive; E11.69 Type 2 diabetes mellitus with other specified complication; R16.0 Hepatomegaly, not elsewhere classified; I48.0 Paroxysmal atrial fibrillation; E11.65 Type 2 diabetes mellitus with hyperglycemia; Z79.899 Other long term (current) drug therapy; Z79.82 Long term (current) use of aspirin; Z99.2 Dependence on renal dialysis; Y92.89 Other specified places as the place of occurrence of the external cause; Z68.30 Body mass index [BMI] 30.0-30.9, adult
CPT/HCPCS: 36415; 70450; 71045; 76705; 80048; 80053; 80202; 82150; 82948; 83036; 83690; 83735; 84100; 84134; 84436; 84443; 84484; 85025; 85610; 85730; 86704; 86706; 86708; 86709; 86803; 87081; 87340; 93005; 99285; G0480; G0482; J2270; J3370; J7030; J7060; J7120; Q0163